=== PATIENT | female | born 2005 | race Caucasian/White ===

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

== ENCOUNTER 2024-05-29 21:30 | Emergency (ER) | payer MEDICAID, SELFPAY ==
--- OUTSIDE RECORDS SUMMARY | 2024-05-29 21:32 | XMS_ITS | Clinical Summary ---
Author Organization [facility] Address [address] [place] [id number] Care Team Providers Care Director Teen Post Name Role Phone Amanda Delgado MD Primary Care Provider [phone] Allergies No known active allergies Medications vit 28/iron fum/folic (multivitamin folic acid 1 mg)Indications: Early stage of (HC) Take 1 Tablet by mouth once daily. 90 Tablet 3 11/22/2023 Active aspirin (ECOTRIN) 81 mg enteric coated tabletIndicatio ns:Supervision of high risk in first trimester (HC) Take 1 Tablet (81 mg) by mouth once daily with a meal. Start aspirin at 12 weeks gestation. 90 Tablet 1 12/20/2023 Active ondansetron (ZOFRAN) 4 mg tablet Take 4 mg by mouth every 6 hours. 12/28/2023 Active meclizine (ANTIVERT) 25 mg tablet Take 25 mg by mouth 3 times daily if needed for Vertigo. 12/28/2023 Active Active Problems Problem Noted Date Diagnosed Date MPP, Supervision of high-risk 12/20/19 24 Overview (03/10/2024): Scott Pruitt : 2005 REFERRING PROVIDER: Amanda Delgado MD, [place], Primary provider approves scheduling of recommended ultrasounds/testing: Yes MPP ULTRASOUND/TESTING PATIENT Support person name: Medicare Biller: Yes - [place] ULTRASOUND TYPE: 03/12 level II REASON FOR VISIT: BMI 40 NEXT VISIT ALERTS: Final SLY by Early Ultrasound LMP Date: Patient's last menstrual period was 10/13/2023 (approximate). SLY: 07/19/24 Early US: Date: 12/05/23 GA: 6w3d SLY: 07/27/24 PrePregnancy Weight: 211lb Height: 5' BMI: 40 PLANS & FUTURE APPOINTMENTS: ULTRASOUND/GROWTH PLAN: - Through: - Growth: Next TESTING PLAN: - Testing: Through DELIVERY PLAN: - Scheduled delivery: - Preferred delivery location: PRIMARY DIAGNOSIS: 18 y.o. Estimated Date of Delivery: 07/27/24 MATERNAL PREVIOUS ULTRASOUNDS: (PCP) ECHO: SPECIALISTS/CONSULTS: Include: Specialty MD Clinic Name Phone# [place] and ADDED TO PATIENT CARE TEAM GENETICS: Declines/Not Done CARE COORDINATION: PERTINENT LABS: Labs reviewed? Yes Normal? No GC/CT not collected Blood type: O Positive Antibody screen: negative Non-[facility] labs need to be entered in [facility]? PERTINENT MEDS: bASA PROCEDURES: IF FGR <10% or EFW <2000 grams: Add FGRPCOM PLAN OF CARE: Original and updated POC Obesity affecting in first trimester 1 Hyperopic astigmatism of left eye 05/24/2017 Hypermetropia of right eye 05/24/2017 Anemia, unspecified 05/08/2007 Overweight(278.02) 05/08/2007 Estimated Date of Delivery Comme nts Yes 07/27/2024 Based on Ultraso und Resolved Problems Problem Noted Date Diagnosed Date Resolved Date Disruptive mood dysregulation disorder 06/14/2017 12/20/2023 Encounters Date Type Department Care Team Description 03/28/2024 Telephone [facility] [address] [place] [address] Amanda Delgado MD Questions (next steps) 03/12/2024 Telephone [facility] [address] [facility] [address] [place] [address] [facility], [place] from Last 3 Months Immunizations Immunization Administration Dates Next Due COVID-19 vaccine (AWR CorporationBio NTech 30mcg/0.3mL) 12YO+ BIVALENT MD YEMIV 02/09/2022 COVID-19 vaccine (Singularu-Bio NTech 30mcg/0.3mL) 12YO+ DESTINEY-SUCROSE PF, MDV 08/17/2021,02/01/2021 DTaP 03/23/2006,03/13/2006 SUyY-IvyY-PKE (Pediarix) 06/26/2005,04/17/2005,1 2004 HIB PRP-OMP (PedvaxHIB) 03/23/2006,03/13,04/17/2005,04/17,02/02/2005,02/02/2005 HPV 9 (Gardasil 9) 12/18/2017,04/11/2017 Hepatitis A (Peds) 11/19/2007,04/23/2007 Inactivated Polio Vaccine 04/11/2017 Influenza Virus, Unspecified 01/04/2006 Influenza, IIV3 (Age >=3 years) 01/04/2006 Influenza, IIV4 11/18/2019,12/18/2017,12/11/2016 MENINGOCOCCAL VACCINE 2 VIAL 2MO-55YO (MENVEO) 02/09/2022,12/11/2016 MMR 04/11/2017 MMRV 01/04/2006 Pneumococcal conj 7-Valent (Prevnar 7) 1 03/06/2005,06/26/2005,04/17/2005,02/02 Tdap 12/11/2016 Varicella Vaccine 01/24/2017 Family History Medical History Relation Name Comments Unknown Father Good Health Half-Sister Good Health Maternal Aunt Good Health Maternal Grandfather Depression Maternal Grandmother Diabetes Maternal Grandmother Hypertension Maternal Grandmother Anxiety disorder Mother Depression Mother Good Health Mother Unknown Paternal Grandfather Unknown Paternal Grandmother Unknown Paternal Uncle Good Health Sister Relation Name Status Comments Father Alive Half-Sister Alive Maternal Aunt Alive Maternal Grandfather Alive Maternal Grandmother Alive Mother Alive Paternal Grandfather Alive Paternal Grandmother Alive Paternal Uncle Alive Sister Alive Social History Tobacco Use Types Packs/Day Years Used Date Smoking Tobacco: Never Smokeless Tobacco: Never Tobacco Cessation:Counseling Given: Yes Comments:no exposure Alcohol Use Standard Drinks/Week Comments Not Currently 0 (1 standard drink = 0.6 oz pur e alcohol) Social drinker-occasional PHQ-2 Answer Date Recorded PHQ-2 TOTAL SCORE 2 02/09/2022 Social Connections Answer Date Recorded Do you often feel lonely or isolated from those around you? 0 11/22/2023 Financial Resource Strain Answer Date R ecorded Difficulty of Paying Living Expenses 1 11/22/2023 Difficulty of Paying Living Expenses 2 11/22/2023 Food Insecurity Answer Date Recorded Do you worry your food will run out before you are able to buy more? 1 11/22/2023 Transportation Needs Answer Date Record ed Lack of Transportation (Medical) Not on file 11/22/2023 Does lack of transportation keep you from work, meetings or getting things that you need? 1 11/22/2023 Housing Stability Answer Date Recorded What is your housing situation today? 1 11/22/2023 Utilities Answer Date Recorded Do you have trouble paying f or utilities (for example, heat, electricity, water, phone)? 2 11/22/2023 Estimated Date of Delivery Comme nts Yes 07/27/2024 Based on Ultraso und Sex and Gender Information Value Date Recorded Sex Assigned at Not on file Legal Sex Female 4:32 PM CDT Gender Identity Not on file Sexual Orientation Not on file Obstetrics History Para Term AB IAB SAB Ectopic Multiple Livin g Live Births 1 0 0 0 0 0 0 0 0 0 0 Date Outcome GA Total Labor Labor/2nd/3rd Weight Sex Type Anes PTL Yudy A1 A5 Name Clin Current Summary Episode Dates Number of Fetuses Estimated Date of Delivery 12/13/2023 - Present (05/29/2024) 07/27/2024 (set by Dona Mccain RN on 12/13/2023 based on Ultrasound on 12/05/2023) Dating Summary Based On SLY GA Diff Last Menstrual Period on 10/13/2023 (Approximate ) 07/19/2024 +1w1d Ultrasound on 12/05/2023 07/27/2024 Working GA:6w3d Vitals Pregravid Weight Height TWG (As of 05/29/2024) Pregrav id BMI 1.544 m (5' 0.79) Notes Progress Notes - OB Encounte r - 12/20/2023 - GA:8w4d 12/20/2023 - 8w4d - Me reggie Delgado MD Clinic Note: First OB Visit 12/20/2023 Scott Pruitt is a 18 y.o. with Estimated Date of Delivery: 07/27/24, here today for a first visit. She is 8w4d. 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 Plans to be there for 2 months. Will likely check in with an OB provider while down there. Still having some right lower quadrant pain . Went to ER. Ultrasounds have looked good IMPRESSION: Single living intrauterine measuring 7 weeks 3 days and a sonographic due date of 07/28/2024. Subchorionic hemorrhage measuring 1.6 x 0.8 x 2.4 cm. First ultrasound 12/04 at 6w3d with SLY 07/27/2024 (working dates) MENSTRUAL HISTORY Patient's last menstrual period was 10/13/2023 (approximate).: 07/19/2024 LMP was somewhere between October 17-. Not sure on dates. She has some irregularity to her periods at baseline. MEDICAL HISTORY Medical, surgical, family, and social history reviewed today and updated if necessary. Past Medical History: . Date ANEMIA 05/08/2007 Appendicitis 01/04/2017 Depression 2017 History of BCG vaccination In [place] OVERWEIGHT 05/08/2007 Past Surgical History: . Laterality Date LAPAROSCOPIC APPENDECTOMY 01/04/2017 Family History Problem Relation Age of Onset Depression Mother Anxiety disorder Mother Good Health Mother Unknown Father Good Health Sister Good Health Half-Sister Good Health Maternal Aunt Unknown Paternal Uncle Hypertension Maternal Grandmother Depression Maternal Grandmother Diabetes Maternal Grandmother Good Health Maternal Grandfather Unknown Paternal Grandmother Unknown Paternal Grandfather Social History Socioeconomic History Marital status: Single Tobacco Use Smoking status: Never Smokeless tobacco: Never Tobacco comments: no exposure Vaping Use Vaping status: Former Quit date: 12/04/2019 Substance and Sexual Activity Alcohol use: Not Currently Comment: Social drinker-occasional Drug use: Never Sexual activity: Yes Partners: Male Social History Narrative Merged History Encounter [employer], student 6 th grade, mother/Shelbi Current Outpatient Medications Medication Sig Dispense Refill aspirin (ECOTRIN) 81 mg enteric coated tablet Take 1 Tablet (81 mg) by mouth once daily with a meal. Start aspirin at 12 weeks gestation. 90 Tablet 1 vit 28/iron fum/folic (multivitamin folic acid 1 mg) Take 1 Tablet by mouth once daily. 90 Tablet 3 RISK FACTORS Seat Belt Use: 100% Alcohol/day: 0 Meds/Drugs/ETOH Since LMP: No Control Method: none High Risk Behavior: none INFECTION HISTORY Current Drug Use: none HIV Risk Evaluation: low risk Hepatitis B Risk Evaluation: low risk Hepatitis B Immunized: yes Personal History of Genital Herpes: no Partner History of Genital Herpes: no Rash/Viral Illness Since LMP: No History of STD: no history of STD's History of Chicken Pox? No Chicken pox immunization? yes Family history of - defects: no Chromosomal problems: no Stillbirths: no Desire Test for CYSTIC FIBROSIS or SMA? no Desire genetic testing otherwise? maybe REVIEW OF SYSTEMS: General: no fevers, chills, appetite changes, weight changes, fatigue Eyes: no blurry vision, double vision. no Ears/Nose/Throat: no hearing changes, pain. no nasal congestion, rhinorrhea, frequent epistaxis. no throat pain, difficulty swallowing. Last saw dentist no. Cardiovascular: no chest pain, chest pressure, syncope, orthostatic symptoms Respiratory: no cough, shortness of breath, dyspnea on exertion, orthopnea Gastrointestinal: + nausea, No vomiting, constipation, diarrhea, melena or bright red rectal bleeding Genitourinary - female: no hematuria, dysuria, incontinence, nocturia. no vaginal bleeding, cramping. Musculoskeletal: no back, arm or leg pain Skin: no rashes or lesions Neurologic: no numbness, weakness, tingling, headaches, falls Psychiatric: no depression, anxiety Endocrine: no polyuria, polydipsia, heat or cold intolerance Heme/Lymphatic: no easy bruising, easy bleeding Allergic/Immunologic: no frequent infections PHYSICAL EXAM BP 112/77 (Cuff Site: Left Arm, Position: Sitting, Cuff Size: Adult Large) Pulse 83 Wt 95.7 kg (211 lb) LMP 10/13/2023 (Approximate) SpO2 99% General Appearance: Alert, well-developed, well-nourished, with appropriate grooming and dress. No acute distress HEENT Exam: PERRL. MMM. TMs pearly bilaterally. Neck / Thyroid Exam: Supple, no masses, nodes or enlargement. Chest/Respiratory Exam: Normal chest wall and respirations. Clear to auscultation. Breast Exam: declines exam Cardiovascular Exam: Regular rate and rhythm. Normal S1, S2. No murmur, click, gallop, or rubs. Gastrointestinal Exam: Soft, non-tender, no masses or organomegaly. Pelvic Exam: no concerns. Lymphatic Exam: Non-palpable nodes in neck, clavicular regions. Musculoskeletal Exam: Back is straight and non-tender, full ROM of upper and lower extremities. Skin: no rash or abnormalities Neurologic Exam: Normal gait and speech, no tremor. Psychiatric Exam: Alert and oriented, appropriate affect. ASSESSMENT/PLAN: ICD-10-CM 1. Supervision of high risk in first trimester O09.91 TYPE & SCREEN POCT Urinalysis Dipstick Only URINE CULTURE URINALYSIS MICROSCOPIC GC / Chlamydia ([facility]) - Urine aspirin (ECOTRIN) 81 mg enteric coated tablet AMB CONSULT TO MATERNAL- MEDICINE 2. Obesity affecting in first trimester, unspecified obesity type O99.211 1. First OB: Satisfactory exam. Demonstrates appropriate and health seeking behaviors toward her . Verbalizes good understanding of care schedule and the importance of coming to each visit as scheduled. Has supportive family relationship. Reviewed health maintenance issues including diet, exercise, caffeine intake, handling of cat litter, toxic substances, daily vitamins, child classes, choosing a electrical engineer, and regular exams. - Reviewed ordered lab results - Reviewed [facility]nings and handouts 2. Given BMI >40, recommend level 2 ultrasound and consideration of baby aspirin to prevent preeclampsia. Will start at 12 weeks. 3. Interested in NIPT testing, brochure given. May try to complete in [place]. 4. RTC 4-8 weeks when back from [place]. She was encouraged to call the office with any questions or concerns. Amanda Delgado MD .................... 12/20/2023 1:04 PM [facility] [phone] CC: [facility] Progress Notes - OB Encounte r - 12/13/2023 - GA:7w4d 12/13/2023 - 7w4d - Adán , Dona, RN Student SUBJECTIVE: Scott Pruitt is a 18 y.o. female, , who presents for confirmation and ob education. Patient presents to the clinic alone. Had positive test at ER. This was Planned, Desired. Patient was not on contraception. 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 MENSTRUAL HISTORY: Patient's last menstrual period was 10/13/2023 (approximate).: Cycle Regularity: regular, every 28-30 days Past Medical History: . Date ANEMIA 05/08/2007 Appendicitis 01/04/2017 Depression 2017 History of BCG vaccination In [place] OVERWEIGHT 05/08/2007 OB History Para Term AB Living 1 0 0 0 0 0 SAB IAB Ectopic Multiple Live Births 0 0 0 0 0 # Outcome Date GA Lbr Fabrizio/2nd Weight Sex Type Anes PTL Lv 1 Current 5P'S SUBSTANCE ABUSE SCREEN FOR ALCOHOL, DRUGS AND TOBACCO: Did any of your parents have a problem with using alcohol or drugs? No Do any of your friends (peers) have problems with drug or alcohol use? No Does your partner have a problem with drug or alcohol use? No Before you knew you were , how often did you drink beer, wine, wine coolers or liquor or use any kind of drug? Rarely-alcohol In the past month, how often did you drink beer, wine, wine coolers or liquor or use any kind of drug? Not at all How much did you smoke, vape or use tobacco or nicotine in any form before you knew you were ? Don't Smoke, Vape or use Tobacco Genetic Screening Genetic Screening/Teratology Counseling- Includes patient, baby's father, or anyone in either family with: Patient's age 35 years or older as of estimated date of delivery: No Thalassemia (Thai, Turkmen, Mediterranean, or background): MCV less than 80: No Neural tube defect (Meningomyelocele, Spina bifida, or Anencephaly): No Congenital heart defect: No Down syndrome: Yes (Comment: Maternal aunt has down syndrome) Delmar-Sachs (Ashkenazi Orthodoxy, Cajun, Salvadorean [place]): No Danica disease (Ashkenazi Orthodoxy): No Familial dysautonomia (Ashkenazi Orthodoxy): No Sickle cell disease or trait (): No Hemophilia or other blood disorders: No Muscular dystrophy: No Cystic fibrosis: No Paras's chorea: No Intellectual disability and/or autism: No Other inherited genetic or chromosomal disorder: No Maternal metabolic disorder (eg. Type 1 diabetes, PKU): No Patient or baby's father had child with defects not listed above: No Recurrent loss, or a stillbirth: No Medications (including supplements, vitamins, herbs, or OTC drugs)/illicit/recreational drugs/alcohol since last menstrual period: No CURRENT MEDICATIONS: Current Outpatient Medications Medication Sig vit 28/iron fum/folic (multivitamin folic acid 1 mg) Take 1 Tablet by mouth once daily. No current facility-administered medications for this visit. Medications have been reviewed by me and are current to the best of my knowledge and ability. ALLERGIES: Patient has no known allergies. OBJECTIVE: Ht 1.544 m (5' 0.79) Wt 96.1 kg (211 lb 12.8 oz) LMP 10/13/2023 (Approximate) BMI 40.30 kg/m ,URINE (no units) Date Value 05/09/2022 Negative POC HCG URINE (no units) Date Value 11/22/2023 POSITIVE (A) ASSESSMENT/PLAN: No diagnosis found. EDUCATION/PATIENT INSTRUCTIONS - Advised patient to start/continue vitamin. - Discussed risk of using alcohol, tobacco, other drugs in . - Discussed healthy lifestyle in . - Provided copy of Beginnings book and book inserts, discussed [id number] medications, and follow up. - Encouraged patient to call clinic at [phone] with any vaginal bleeding, fluid leaking from vagina, severe abdominal pain, nausea with severe vomiting, fever higher than 100.4F, painful urination, headache not relieved by Tylenol, or other concerns - labs completed with today's visit. - Patient informed to schedule 1st trimester dating ultrasound between 7-10 weeks. - Initial OB appointment with FP/OB scheduled. PHQ-9, and COVID-19 vaccine discussion to be completed at this visit. Future Appointments Date Time Provider Department Center 12/20/2023 12:45 PM Amanda Delgado MD [facility] Dona Mccain RN .................... 12/13/2023 10:41 AM Last Filed Vital Signs Vital Sign Reading Time Taken Comments Blood Pressure 112/77 12/20/2023 12:54 PM CDT Pulse 83 12/20/2023 12:54 PM CDT Temperature 36.9 C (98.5 F) 12/19/2019 6:04 PM CDT Respiratory Rate 16 12/19/2019 6:04 PM CDT Oxygen Saturation 99% 12/20/2023 12:54 PM CDT Inhaled Oxygen Concentration - - Weight 95.7 kg (211 lb) 12/20/2023 12:54 PM CDT Height 154.4 cm (5' 0.79) 12/13/2023 10:16 AM C DT Head Circumference 48.9 cm 10/25/2006 1:30 PM CDT Head Circumference Percentile 91.92% 10/25/2006 1:30 PM CDT Growth Chart: WHO (Girls, 0- 2 years) Body Mass Index - - Plan of Treatment Upcoming Encounters Date Type Department Care Team (Late st Contact Info) Description 06/04/2024 9:10 AM CDT OB Encounter [facility] [address] [place] [address] Amanda Delgado MD [address] [place] [address] Health Maintenance Due Date Last Done Comments Well Child Check for age 3-20 02/09/2023 02/09/2022, 11/18/2019, 12/18/2017, Additional history exists Depression screening for age 12+ 02/13/2023 02/13/2022, 02/09/2022, 11/18/2019, Additional history exists Chlamydia for age 16-24 05/10/2023 05/10/19 23, 02/09/2022, 12/19/2019 COVID-19 vaccine series ( season) 2023 02/09/2022, 08/17/2021, 02/01/2021 Influenza Vaccine (#1) 2023 0, 12/18/2017, 12/11/2016, Additional history exists BMI (ht and wt on same day) for age 18+ 2024 12/13/2023, 11/22/2023 Tetanus booster 12/11/2026 12/11/2016 Pneumococcal series for age 6-49 Aged Out 01/04/2006, 06/26/2005, 04/17/2005, Additional history exists No longer eligible based on patient's age to complete this topic Tdap Completed 12/11/2016 HPV series for age 9-26 Completed 12/18/2017, 04/11 Meningococcal series for age 11-21 Completed 02/09/2022, 12/11/2016 HIV for age 15-65 Completed 12/13/2023 Hepatitis C screening for age 18-79 Completed 12/13/2023 RSV vaccine for adults or (No Doses Required) Completed Procedures Procedure Name Priority Date/Time Associated Diagnosis Comments HIV 1/2 ANTIGEN/ANTIBODY FOURTH GENERATION W/RFL ([facility] [employer]) Routine 12/13/2023 12:00 PM CDT Encounter for supervision of normal first in first trimester (HC) ANTI HCV Routine 12/13/2023 12:00 PM CDT Encounter for supervision of normal first in first trimester (HC) GC CHLAMYDIA TRACH PROBE Routine 05/09/2022 11:30 AM APARTMENT LEASING AGENT Vaginal pain from Last 3 Months or Most Recently Relevant to Health Maintenance Results * HIV 1/2 ANTIGEN/ANTIBODY FOURTH GENERATION W/RFL ([facility]) (12/13/2023 12:00 PM CDT) HIV AG/AB, 4TH GEN NON-REACT JANE NON-REACT JANE [facility] Comment: HIV-1 antigen and HIV-1/HIV-2 antibodies were not detected. There is no laboratory evidence of HIV infection. PLEASE NOTE: This information has been disclosed to you from records whose confidentiality may be protected by state law. If your state requires such protection, then the state law prohibits you from making any further disclosure of the information without the specific written consent of the person to whom it pertains, or as otherwise permitted by law. A general authorization for the release of medical or other information is NOT sufficient for this purpose. For additional information please refer to http://[facility].3CI/faq/ZVG588 (This link is being provided for informational/ educational purposes only.) The performance of this assay has not been clinically validated in patients less than 2 years old. Blood BLOOD SPECIMEN / Unknown 12/13/2023 12:00 PM CDT 12/13/2023 12:01 PM CDT Narrative [facility] - 12/14/2023 5:58 AM CDT PATIENT UNABLE TO VOID; ADVISED TO RETURN FOR COLLECTION. Amanda Delgado MD SEND OUTS Final Resul t [facility] [address] [place] [address], [facility] [address] [place] [address] * ANTI HCV (12/13/2023 12:00 PM CDT) HEPATITIS C ANTIBODY NON-REACTI VE NON-REACT JANE [facility] Comment: HCV antibody was non-reactive. There is no laboratory evidence of HCV infection. In most cases, no further action is required. However, if recent HCV exposure is suspected, a test for HCV RNA (test code 68446) is suggested. For additional information please refer to http://[facility].3CI/faq/CQI03t2 (This link is being provided for informational/ educational purposes only.) Blood BLOOD SPECIMEN / Unknown 12/13/2023 12:00 PM CDT 12/13/2023 12:01 PM CDT Narrative [facility] - 12/14/2023 5:58 AM CDT PATIENT UNABLE TO VOID; ADVISED TO RETURN FOR COLLECTION. us Amanda Delgado MD SEND OUTS Final Resul t [facility] [address] [place] [address], [facility] [address] [place] [address] * GC & CHLAMYDIA DNA PCR [[id number]] (05/09/2022 11:30 AM APARTMENT LEASING AGENT) CHLAMYDIA PROBE Negative 2:26 AM APARTMENT LEASING AGENT [facility] N GONORRHOEAE PROBE Negative 05/10/2022 2:26 AM APARTMENT LEASING AGENT [facility] Other URINE SPECIMEN / Unknown Non-Blood / Unknown 05/09/2022 11:30 AM APARTMENT LEASING AGENT 05/09/2022 11:53 AM APARTMENT LEASING AGENT us Aretha Babb DO MICROBIOLOGY Final Result [facility] 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
[2024-05-29 21:38] VITALS: BP 119/78; PULSE 88; RESP 18; TEMP 36.5; O2SAT 98; BMI 35.2
--- NOTE | 2024-05-29 21:56 | ED_ITS ---
HPI - Headache General Time Seen by Provider: 21:56 Date Seen: 05/29/24 Chief Complaint: Headache/Migraine Stated Complaint: Headache blurred vision, travel from [place] Time Seen by Provider: 05/29/24 21:56 Source: patient, family, RN notes reviewed and old records reviewed Mode of arrival: ambulatory Limitations: no limitations History of Present Illness HPI Narrative: Scott is a very pleasant 18-year-old at approximately 32 weeks per patient report-no OB establishment in the [place]who comes to the emergency room at the urging of her physician from [place] for evaluation of a headache and blood pressure check as well as an ultrasound. Patient noted to have been in [place] for the last 5 months with family members. This morning she got up at 0300 hours in order to take a 5 hour bus trip to the airport in [facility]. She notes that when she got up she had a headache and states it was just everywhere and attributed that to getting up and feeling tired. She notes that when she 1st got up she also had some stars in her vision but those have since resolved. She had a mild headache continue on the flight but now that she is back in [place] she is feeling much better and she does not have a headache. She does endorse some increased lower extremity swelling but states that really has not been a problem for her. She notes that the baby does not seem to be moving as much today when normally the baby is very active. No vaginal bleeding no abdominal pain at this time. Does note that she has no pain with urination but sometime she can not hold her P. She notes that she had a cough 3 weeks ago and has continued but it is much better. She denies any shortness of breath or chest pain. Her sister is here at this time. Very loving and supportive. Blood pressure is 120/77. I do query the patient if this is what is normal for her and she felt that that was what her numbers were when she was in [place]. Again at this time denies visual changes, headache, abdominal pain, fever or chills. Related Data Home Medications ?Medication ?Instructions ?Recorded ?Confirmed vitamin with calcium 1 tab PO DAILY 12/05/23 12/28/23 no.72-iron 27 mg-folic acid 1 mg tablet ( Vitamins Plus Low Iron) Previous Rx's ?Medication ?Instructions ?Recorded meclizine 25 mg tablet 25 mg PO QID #20 tabs 12/28/23 ondansetron HCl 4 mg tablet 4 mg PO Q6H #20 tabs 12/28/23 Allergies Allergy/AdvReac Type Severity Reaction Status Date / Time No Known Drug Allergies Allergy Verified 05/29/24 21:37 Review of Systems Status of ROS: Reports: 10 or more systems reviewed and unremarkable except as noted in History and below Const: Denies: fever, chills or fatigue ENMT: Denies: throat pain or nasal congestion Cardio: Reports: swelling of feet/ankles; Denies: chest pain or shortness of breath with exertion Resp: Reports: cough; Denies: shortness of breath GI: Denies: abdominal pain, nausea, vomiting or diarrhea Musculo: Denies: back pain Integ/Breast: Denies: rash Neuro: Reports: headache (Resolved); Denies: numbness in extremities or weakness in extremities Endo: Denies: fatigue PFSH PFSH Social History Smoking Status: Never smoker Do you use any of these nicotine containing products: None Second hand tobacco smoke exposure: No How often do you have a drink containing alcohol: never How often do you have six or more drinks on one occasion: Never AUDIT-C Alcohol total score: 0 Non-prescribed substance use: denies use service: No Exam Narrative: Exam Narrative: Alert and oriented. Very pleasant young woman in no acute distress. Eyes are clear. Face symmetrical. Mentating normally. Head is atraumatic. Heart with regular rate and rhythm and lungs are clear bilaterally. Abdomen soft nontender gravid. Lower extremities with scant peripheral edema. No erythema and no calf tenderness. Moving all extremities equally. Const: Vital Signs, click to edit/add: Vital Signs - 24 hr 05/29/24 21:38 05/29/24 23:06 Temperature 97.7 F Pulse Rate [Right Pulse Oximeter] 88 68 Respiratory Rate 18 16 Blood Pressure [Ri ght Upper Arm] 119/78 112/73 Pulse Oximetry 98 98 Oxygen Delivery Me thod Room Air Room Air Documenting provider has reviewed patient's vital signs: yes Course Course ED Course: At this time differential diagnosis includes fatigue, migraine, routine headache, preeclampsia. Given minimal obstetrical care here will do workup for preeclampsia to include CBC, comprehensive panel, urinalysis. I did have the pleasure of speaking with Ob packaging sales consultant Dr. Duggan. She does advise a biophysical profile ultrasound and growth assessment. Reevaluation(s) Reevaluation #1: Biophysical profile 10/10 and appropriate growth. Laboratory values reassuring with no evidence of proteinuria, elevated LFTs. Recheck of blood pressure is 112/73. Patient has no headache or abdominal pain at this time. No medications were given. Vital Signs Vital signs: Initial Vital Signs Temperature 97.7 F 05/29/24 21:38 Temperature Source Temporal Artery Scan 05/29/24 21:38 Pulse Rate 88 05/29/24 21:38 Respiratory Rate 18 05/29/24 21:38 Blood Pressure 119/78 05/29/24 21:38 Blood Pressure Mean 91 05/29/24 21:38 Blood Pressure Position Sitting 05/29/24 21:38 Pulse Oximetry 98 05/29/24 21:38 Oxygen Delivery Method Room Air 05/29/24 21:38 Vital Signs Temperature 97.7 F 05/29/24 21:38 Pulse Rate 88 05/29/24 21:38 Respiratory Rate 18 05/29/24 21:38 Blood Pressure 119/78 05/29/24 21:38 Pulse Oximetry 98 05/29/24 21:38 Oxygen Delivery Method Room Air 05/29/24 21:38 Temperature 97.7 F 05/29/24 21:38 Pulse Rate 68 05/29/24 23:06 Respiratory Rate 16 05/29/24 23:06 Blood Pressure 112/73 05/29/24 23:06 Pulse Oximetry 98 05/29/24 23:06 Oxygen Delivery Method Room Air 05/29/24 23:06 MDM - Headache MDM Narrative Medical decision making narrative: 1. Headache-resolved. Patient notes that she had to get up at 0300 hours in order to do a 5 hour bus trip to the airport. She notes that she is missing her mother which is there. No evidence of preeclampsia and headache has resolved even prior to her arrival. No evidence of protein urea, hypertension. 2. Disposition-home at this time. Follow-up with primary care at the [facility]. Feel free to establish with our OBGYN here if needed. Return to the ER as needed for worsening symptoms. Medical Records Attestation: I reviewed the patient's medical records. Lab Data Attestation: I reviewed the patient's lab results. Labs: Lab Results 05/29/24 05/29/24 05/29/24 Range/Units 21:54 22:24 22:35 WBC 9.56 (4.50-11.00) K/uL RBC 4.28 (4.00-5.20) m/uL Hgb 12.6 (12.0-16.0) gm/dL Hct 37.5 (33.0-51.0) % MCV 88 (80-100) fL MCH 29 (26-34) pg MCHC 34 (32-36) gm/dL RDW Coeff of Guera 13.5 (11.5-15.5) % Plt Count 302 (140-440) K/uL Neut % (Auto) 71.6 (42.0-72.0) % Lymph % (Auto) 20.2 (20-44) % [place] % (Auto) 5.1 (0.0-11.0) % Eos % (Auto) 0.9 (0.0-7.0) % Baso % (Auto) 0.2 (0.0-3.0) % Neut # (Auto) 6.84 (1.7-7.0) K/uL Lymph # (Auto) 1.93 (0.90-2.90) K/uL [place] # (Auto) 0.50 (0.00-0.90) K/UL Eos # (Auto) 0.09 (0.00-0.50) K/uL Baso # (Auto) 0.02 (0.00-0.30) K/uL Abs Immat Gran (auto) 0.19 (0.00-0.30) K/uL Imm/Tot Granulo (auto) 2.0 % APTT 31 (23-33) Seconds Fibrinogen 718 H (200-450) mg/dL Sodium 135 (135-149) mmol/L Potassium 3.5 L (3.6-5.1) mmol/L Chloride 106 (96-114) mmol/L Carbon Dioxide 21 (20-32) mmol/L Anion Gap 8 (7-15) mEq/L BUN 7 (5-24) mg/dL Creatinine 0.4 L (0.6-1.2) mg/dL Estimated Creat Clear 162.49 Estimated GFR 146 ml/min Glucose 95 (60-115) mg/dL Uric Acid 2.6 (2.2-8.4) mg/dL Calcium 9.4 (8.7-10.8) mg/dL Total Bilirubin 0.3 (0.1-1.5) mg/dL AST 29 (12-35) U/L ALT 18 (4-35) U/L Alkaline Phosphatase 110 (40-150) U/L Total Protein 7.1 (6.0-8.3) g/dL Albumin 3.7 (3.3-5.0) g/dL Urine Color Yellow (Yellow) Urine Appearance Clear (Clear) Urine pH 6.0 (5.0-8.5) Ur Specific [place] 1.020 (1.000-1.030) Urine Protein Negative (Negative) Urine Glucose (UA) Negative (Negative) Urine Ketones Trace A (Negative) Urine Blood Negative (Negative) Urine Nitrite Negative (Negative) Urine Bilirubin Negative (Negative) Urine Urobilinogen 0.2 (0.2-1.0) Ur Leukocyte Esterase Trace A (Negative) Urine RBC 0-2 (0-2) Urine WBC 0-2 (0-5) Ur Squamous Epith Cells Few (None-Few) Amorphous Sediment Few A (None) Urine Bacteria Few A (None) Urine Creatinine 124.2 mg/dL Protein/Creatinin Ratio 0.08 (0-0.19) Urine Total Protein 10 mg/dL SARS-CoV-2 (PCR) Negative SARS-CoV-2 (Negative) Influenza Type A (PCR) Negative PCR FLU A (Negative) Influenza Type B (PCR) Negative PCR FLU B (Negative) RSV (PCR) Negative PCR RSV (Negative) Imaging Data OB ultrasound: Attestation: I have reviewed the pertinent imaging results. Discharge Plan Discharge Clinical Impression: Headache Patient Disposition: Home, Self-Care Condition: Improved Additional Instructions: Follow-up with your primary care provider at the [facility]. Rest and push fluids. Return for headache, visual changes, abdominal pain and as needed. Prescriptions: No Action Vitamin Plus Low Iron 27 mg iron- 1 mg tablet 1 tab PO DAILY ondansetron HCl 4 mg tablet 4 mg PO Q6H Qty: 20 0RF meclizine 25 mg tablet 25 mg PO QID Qty: 20 0RF Follow Up/Referrals: Provider,Not a Local [Primary Care Provider] - Stand Alone Forms: MyHealth Info Instructions
--- NOTE | 2024-05-29 22:16 | CRLHL7_ITS ---
For Patients: As a result of the Cures Act, medical imaging exams and procedure reports are released immediately into your electronic medical record. You may view this report before your referring provider. If you have questions, please contact your health care provider. INDICATION: Decreased movement, headache. COMPARISON: OB ultrasound 12/05/2023. TECHNIQUE: Ultrasound OB pelvis transabdominal. FINDINGS: Sonographic imaging demonstrates a single living intrauterine gestation. The fetus has a regular cardiac rate of 121 beats per minute. The fetus has a cephalic orientation. The placenta lies anteriorly without evidence of placenta previa. Amniotic fluid volume appears normal with deepest pocket measuring 7.4 cm. The composite ultrasound gestational age is calculated at 32 weeks 1 day with an estimated sonographic due date of 07/23/2024. The estimated weight is 1816 grams which lies at the 42nd percentile. The following biometric measurements were obtained: Biparietal diameter: 8.42 cm (33 weeks 6 days) (94th percentile) Head circumference: 29.15 cm (32 weeks 1 day) (27th percentile) Abdominal circumference: 27.96 cm (32 weeks 0 days) (61st percentile) Femur length: 5.81 cm (30 weeks 3 days) (11th percentile) The HC/AC ratio measures: 1.04 (range 0.96-1.14) BIOPHYSICAL PROFILE: breathing movements: 2/2 Gross body movements: 2/2 tone: 2/2 Amniotic fluid volume: 2/2 Total: 8/8 IMPRESSION: 1. Single living intrauterine gestation in cephalic position with heart rate 121 beats per minute. 2. Ultrasound gestational age 32 weeks 1 day with sonographic due date 07/23/2024. This is concordant with the clinical gestational age of 31 weeks 4 days. 3. Estimated weight is 42nd percentile. 4. Normal biophysical profile score 8 out of 8. Dictated by Adali Yung MD @ 05/30/2024 1:46:32 AM (Electronically Signed)
--- OUTSIDE RECORDS SUMMARY | 2024-05-29 22:23 | XMS_ITS | Clinical Summary ---
Author Organization [facility] Address [address] [place] [id number] Care Team Providers Care Process Improvement Specialist Name Role Phone Amanda Delgado MD Primary Care Provider [phone] Allergies No known active allergies Medications vit [...] : 2004 REFERRING PROVIDER: Amanda Delgado MD, [place], Primary provider approves scheduling of recommended ultrasounds/testing: Yes MPP ULTRASOUND/TESTING PATIENT Support person name: Public Relations Manager: Yes - Turkish ULTRASOUND TYPE: 03/12 level II REASON FOR [...] Non-[facility] labs need to be entered in [employer]? PERTINENT MEDS: bASA PROCEDURES: IF FGR <10% [...] Type Department Care Team Description 03/28/[address] [facility] [address] [place] [address] Amanda Delgado MD Questions (next steps) 03/12/2024 Telephone [facility] [address] [facility] [address] [place] [address] [facility], [place] from Last 3 Months Immunizations Immunization Administration Dates Next Due COVID-19 vaccine (The Eye TribeBio NTech 30mcg/0.3mL) 12YO+ BIVALENT MD YEMIV 02/09/2022 COVID-19 vaccine (KidoZen-Bio NTech 30mcg/0.3mL) 12YO+ DESTINEY-SUCROSE PF, MDV 08/17/2021,02/01/2021 DTaP 03/23/2006,03/13/2006 [id number] (Pediarix) 06/26/2005,04/17/2005,1 2004 HIB PRP-OMP (PedvaxHIB) 03/23/2006,03/13,04/17/2005,04/17,02/02/2005,02/02/2005 [...] Marital Status: single 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 Plans to be [...] Depression 2017 History of BCG vaccination In [place] OVERWEIGHT 05/08/2007 Past Surgical History: . Laterality [...] substances, daily vitamins, child classes, choosing a unit nurse, and regular exams. - Reviewed ordered lab results - Reviewed New Beginnings and handouts 2. Given BMI >40, recommend level 2 ultrasound and consideration of baby aspirin to prevent preeclampsia. Will start at 12 weeks. 3. Interested in NIPT testing, brochure given. May try to complete in [place]. 4. RTC 4-8 weeks when back from [place]. She was encouraged to call the office with any questions or concerns. Amanda Delgado MD .................... 12/20/2023 1:04 PM [facility] [phone] CC: [facility] Progress Notes - OB Encounte r [...] Depression 2017 History of BCG vaccination In [place] OVERWEIGHT 05/08/2007 OB History Para Term AB [...] of estimated date of delivery: No Thalassemia (Persian, Albanian, Mediterranean, or background): MCV less than 80: No Neural tube defect (Meningomyelocele, Spina bifida, or Anencephaly): No Congenital heart defect: No Down syndrome: Yes (Comment: Maternal aunt has down syndrome) Delmar-Sachs (Ashkenazi Yazidism, Cajun, Bahamian Greer): No Danica disease (Ashkenazi Yazidism): No Familial dysautonomia (Ashkenazi Yazidism): No Sickle cell disease or trait (): [...] of Beginnings book and book inserts, discussed [id number] medications, and follow up. - Encouraged patient to call clinic at [phone] with any vaginal bleeding, fluid leaking from [...] Center 12/20/2023 12:45 PM Amanda Delgado MD [facility] Dona Mccain RN .................... 12/13/2023 10:41 AM [...] Description 06/04/2024 9:10 AM CDT OB Encounter [facility] [address] [place] [address] Amanda Delgado MD [address] [place] [address] Health Maintenance Due Date Last Done Comments [...] Comments HIV 1/2 ANTIGEN/ANTIBODY FOURTH GENERATION W/RFL (One4All) Routine 12/13/2023 12:00 PM CDT Encounter for supervision of normal first in first trimester (HC) ANTI HCV Routine 12/13/2023 12:00 PM CDT Encounter for supervision of normal first in first trimester (HC) GC CHLAMYDIA TRACH PROBE Routine 05/09/2022 11:30 AM FINAL INSPECTOR [employer]ORCY[employer] Vaginal pain from Last 3 Months or Most Recently Relevant to Health Maintenance Results * HIV 1/2 ANTIGEN/ANTIBODY FOURTH GENERATION W/RFL ([facility]) (12/13/2023 12:00 PM CDT) HIV AG/AB, 4TH GEN NON-REACT JANE NON-REACT JANE [facility] Comment: HIV-1 antigen and HIV-1/HIV-2 antibodies were [...] purpose. For additional information please refer to http://CommProve.YuMingle/faq/ENC707 (This link is being provided for informational/ [...] Delgado MD SEND OUTS Final Resul t [employer] [facility] [address] [place] [address], [facility] [facility] [address] [place] [address] * ANTI HCV (12/13/2023 12:00 PM CDT) HEPATITIS C ANTIBODY NON-REACTI VE NON-REACT JANE [employer] [facility] Comment: HCV antibody was non-reactive. There is no laboratory evidence of HCV infection. In most cases, no further action is required. However, if recent HCV exposure is suspected, a test for HCV RNA (test code 49928) is suggested. For additional information please refer to http://CommProve.YuMingle/faq/MRU46x4 (This link is being provided for informational/ educational purposes only.) Blood BLOOD SPECIMEN / Unknown 12/13/2023 12:00 PM CDT 12/13/2023 12:01 PM CDT Narrative [facility] - 12/14/2023 5:58 AM CDT PATIENT UNABLE TO VOID; ADVISED TO RETURN FOR COLLECTION. us Amanda Delgado MD SEND OUTS Final Resul t [facility] [address] [place] [address], [facility] [address] [place] [address] * GC & CHLAMYDIA DNA PCR [[id number]] (05/09/2022 11:30 AM FINAL INSPECTOR [employer]ORCYLES) CHLAMYDIA PROBE Negative 2:26 AM FINAL INSPECTOR [employer]ORCY[employer] [facility] N GONORRHOEAE PROBE Negative 05/10/2022 2:26 AM FINAL INSPECTOR MOTORCYLES [facility] Other URINE SPECIMEN / Unknown Non-Blood / Unknown 05/09/2022 11:30 AM FINAL INSPECTOR [employer]OR[employer] 05/09/2022 11:53 AM FINAL INSPECTOR [employer]ORCY[employer] us Aretha Babb DO MICROBIOLOGY Final Result [facility] [address] [place] [address], from Last 3 Months or Most Recently Relevant to Health Maintenance Insurance [facility] [employer] INS Advance Directives Documents on File Type Date Recorded Patient Mopper Expl anation Power of Artist Woodblock 06/04/2017 3:33 PM POWER OF BIRTH ATTENDANT, SUKUMAR FROST, 08/30/16 Care Teams Process Improvement Specialist Relationship Specialty Start Date End Date Amanda Delgado MD [address] [facility] [place] [address] PCP - General Family Practice 12/13/23
[2024-05-29 22:46] LABS: Appearance Urine Clear (Clear); Bilirubin Urine Negative (Negative); Blood Urine Negative (Negative); Color Urine Yellow (Yellow); Glucose Urine Negative (Negative); Ketones Urine Trace (Negative); Leukocyte Esterase Urine Trace (Negative); Nitrite Urine Negative (Negative); Protein Urine Negative (Negative); Urobilinogen Urine 0.2 (0.2-1.0)
[2024-05-29 22:52] LABS: Amorphous Sediment Urine Few; Bacteria Urine Few; RBC Urine 0-2 (0-2); Squamous Epithelial Cell Urine Few (None-Few); WBC Urine 0-2 (0-5)
[2024-05-29 22:52] LABS: Fibrinogen* 718 mg/dL (200-450); Partial Thromboplastin Time* 31 Seconds (23-33)
[2024-05-29 22:58] LABS: Basophils Absolute Auto 0.02 K/uL (0.00-0.30); Basophils Percent Auto 0.2 % (0.0-3.0); Eosinophils Absolute Auto 0.09 K/uL (0.00-0.50); Eosinophils Percent Auto 0.9 % (0.0-7.0); Hematocrit 37.5 % (33.0-51.0); Hemoglobin* 12.6 gm/dL (12.0-16.0); Immature Granulocytes Abs Auto 0.19 K/uL (0.00-0.30); Lymphocytes Absolute Auto 1.93 K/uL (0.90-2.90); Lymphocytes Percent Auto 20.2 % (20-44); Mean Corpuscular HGB Conc 34 gm/dL (32-36); Mean Corpuscular Hemoglobin 29 pg (26-34); Mean Corpuscular Volume 88 fL (80-100); Monocytes Percent Auto 5.1 % (0.0-11.0); Neutrophils Absolute Auto 6.84 K/uL (1.7-7.0); Neutrophils Percent Auto 71.6 % (42.0-72.0); Platelet Count* 302 K/uL (140-440); RDW Coefficient of Variation % 13.5 % (11.5-15.5); Red Blood Count 4.28 m/uL (4.00-5.20); White Blood Count* 9.56 K/uL (4.50-11.00)
[2024-05-29 23:01] LABS: Slide Review Reflex No
[2024-05-29 23:02] LABS: Albumin* 3.7 g/dL (3.3-5.0); Chloride* 106 mmol/L (96-114); Potassium* 3.5 mmol/L (3.6-5.1); Sodium* 135 mmol/L (135-149)
[2024-05-29 23:03] LABS: Total Protein Urine 10 mg/dL
[2024-05-29 23:04] LABS: Creatinine Urine 124.2 mg/dL; Protein Creatinine Ratio Urine 0.08 (0-0.19)
[2024-05-29 23:04] LABS: Anion Gap 8 mEq/L (7-15); Blood Urea Nitrogen* 7 mg/dL (5-24); Carbon Dioxide* 21 mmol/L (20-32); Creatinine* 0.4 mg/dL (0.6-1.2); Est. Creatinine Clearance* 162.49; Estimated Glomerular Filt Rate 146 ml/min
[2024-05-29 23:05] LABS: Alanine Aminotransferase* 18 U/L (4-35); Alkaline Phosphatase* 110 U/L (40-150); Aspartate Amino Transferase* 29 U/L (12-35); Bilirubin Total* 0.3 mg/dL (0.1-1.5); Calcium* 9.4 mg/dL (8.7-10.8); Glucose* 95 mg/dL (60-115); Total Protein* 7.1 g/dL (6.0-8.3); Uric Acid* 2.6 mg/dL (2.2-8.4)
[2024-05-29 23:06] VITALS: BP 112/73; PULSE 68; RESP 16; O2SAT 98
[2024-05-29 23:15] LABS: PCR FLU A Negative PCR FLU A (Negative); PCR FLU B Negative PCR FLU B (Negative); PCR RSV Negative PCR RSV (Negative); SARS PCR* Negative SARS-CoV-2 (Negative)
== END 2024-05-29 23:35 | disposition home or self-care (01) ==
PROVIDERS: Emergency Provider Family Medicine
DX: R51.9 Headache, unspecified (principal)
CPT/HCPCS: 36415; 76816; 76819; 80053; 81001; 82570; 84156; 84550; 85025; 85384; 85730; 87086; 87631; 99284

== ENCOUNTER 2024-06-12 21:50 | Emergency (ER) | payer MEDICAID, SELFPAY ==
--- OUTSIDE RECORDS SUMMARY | 2024-06-12 21:52 | XMS_ITS | Clinical Summary ---
Author Organization [facility] Address [address] [place] [id number] Care Team Providers Care Rail Bonder Name Role Phone Amanda Delgado MD Primary Care Provider [phone] Allergies No known active allergies Medications aspirin (ECOTRIN) 81 mg enteric coated tabletIndicatio ns:Supervision of high risk in first trimester (HC) Take 1 Tablet (81 mg) by mouth once daily with a meal. Start aspirin at 12 weeks gestation. 90 Tablet 1 4 Active ondansetron (ZOFRAN) 4 mg tablet Take 4 mg by mouth every 6 hours. 4 Active meclizine (ANTIVERT) 25 mg tablet Take 25 mg by mouth 3 times daily if needed for Vertigo. 4 Active vit 28/iron fum/folic (multivitamin folic acid 1 mg)Indications: Early stage of (HC) Take 1 Tablet by mouth once daily. 90 Tablet 3 5 Active Breast Pump PurchaseIndicat ions:Supervisio n of high risk in third trimester (HC),Obesity affecting in first trimester, unspecified obesity type (HC) Electric breast pump for home use. Gestational age at delivery: to be determined. Reason for need: separation from . Length of need: 99 months (lifetime use) 1 Each 5 Active vit 28/iron fum/folic (multivitamin folic acid 1 mg)Indications: Early stage of (HC) Take 1 Tablet by mouth once daily. 90 Tablet 3 4 025 Discontin ued(Reord er (E-cancel not sent)) Breast Pump PurchaseIndicat ions:Supervisio n of high risk in third trimester (HC),Obesity affecting in first trimester, unspecified obesity type (HC) Electric breast pump for home use. Gestational age at delivery: to be determined. Reason for need: separation from infant. Length of need: 99 months (lifetime use) 1 Each 5 025 Discontin ued(*Erro r/rockboard lather error) Active Problems Problem Noted Date Diagnosed Date [facility], Supervision of high-risk 12/20/19 24 Overview (06/12/2024): Additional [facility] SRO - 06/12/2024 - Completed [x] Patient name: Scott Pruitt : 2005 Age: 18 y.o. Date of SRO: 06/12/2024 Estimated Date of Delivery: 07/27/24 Gest Age: 33w4d G/P: Current BMI: 41 Reason for referral: Obesity, was in [place] for much of , never had level 2 US/ echo. REFERRING PROVIDER/CLINIC LOCATION/FAX #: Rail Bonder Role Contact Info Address Amanda Delgado MD Family Practice [address] [facility] [address] Primary MD approves scheduling of recommended ultrasounds/testing: Yes Please schedule the following: [x] Gloria [] Multiples: [] Consult [x] Ultrasound: - Level 2 (including echo) - 75 minutes and - BPP w/NST - once [] Genetic Counseling [] Before [] After []15 [] 30 []45 []NT []CVS []Amnio [] BMI > 40 [] Territory Sales Representative - Language [] [place] Insurance: Location Specialty Days Any [facility] Clinic [x] In-person [] Can be virtual N/A Comments: RN: ESTELA SHORT RN Parts Expediter: CROW: /Provider: Date:06/12/2024 Urgency: 4-10 days (delete BPP/NST if you can get her L2 before 34w) []Can be sooner [] Can be split Scott Pruitt : 2005 REFERRING PROVIDER: Amanda Delgado MD, [place], Primary provider approves scheduling of recommended ultrasounds/testing: Yes [facility] ULTRASOUND/TESTING PATIENT Support person name: Territory Sales Representative: Yes - [facility] ULTRASOUND TYPE: L2 and BPP/NST REASON FOR VISIT: BMI 41, obesity, was in [place] for much of , never had level 2 US/ echo. NEXT VISIT ALERTS: Final SLY by Early Ultrasound LMP Date: Patient's last menstrual period was 10/13/2023 (approximate). SLY: 07/19/24 Early US: Date: 12/05/23 GA: 6w3d SLY: 07/27/24 PrePregnancy Weight: 211lb Height: 5' BMI: 40 PLANS & FUTURE APPOINTMENTS: ULTRASOUND/GROWTH PLAN: - Growth: Next TESTING PLAN: - Testing: Through DELIVERY PLAN: - Scheduled delivery: - Preferred delivery location: PRIMARY DIAGNOSIS: 18 y.o. Estimated Date of Delivery: 07/27/24 MATERNAL: BMI 41 Was in [place] for much of , never had level 2 US/ echo. PREVIOUS ULTRASOUNDS: 05/29/24 (US at Primary@32w1d for d/0 decreased FM) EFW 42%, BPP 8/8, normal fluid 05/26/24 (US done in [place]) EFW 1813 gm, normal fluid (report in [facility]) 04/14/24 (US done in [place]) EFW 720 gm (report in [facility]) (PCP)12/05/23 GA: 6w3d SLY: 07/27/24 ECHO: SPECIALISTS/CONSULTS: Include: Specialty MD Clinic Name Phone# [place] and ADDED TO PATIENT CARE TEAM GENETICS: Declines/Not Done CARE COORDINATION: PERTINENT LABS: Passed 2 hr gtt in [place] Blood type: O Positive Antibody screen: negative Non-[facility] labs need to be entered in EPIC? PERTINENT MEDS: bASA PROCEDURES: PLAN OF CARE: Original and updated POC Obesity affecting in first trimester 1 Hyperopic astigmatism of left eye 05/24/2017 Hypermetropia of right eye 05/24/2017 Anemia, unspecified 05/08/2007 Overweight(278.02) 05/08/2007 Estimated Date of Delivery Comme nts Yes 07/27/2024 Based on Ultraso und Resolved Problems Problem Noted Date Diagnosed Date Resolved Date Disruptive mood dysregulation disorder 06/14/2017 12/20/2023 Encounters Date Type Department Care Team Description 06/12/2024 Transcribe Orders [facility] [address] [facility] [address] [place] [address] Amanda Delgado MD 06/11/2024 2:50 PM CDT OB Encounter [facility] [address] [place] [address] Amanda Delgado MD Care (33w3d) 06/11/2024 Travel 06/06/2024 Orders Only [facility] Scanner 1 scan: (1-Ord) INCOMING RECORDS-US, [facility], 06/06/2024 06/06/2024 Orders Only [facility] Scanner 1 scan: (1-Ord) INCOMING RECORDS-LABS, [facility], 06/06/2024 06/04/2024 9:10 AM CDT OB Encounter [facility] [address] [place] [address] Amanda Delgado MD Care (32w3d) 06/04/2024 Travel 05/29/2024 Orders Only [facility] Scanner 1 scan: (1-Ord) [facility] OB PPP, 05/29/2024 05/29/2024 Orders Only [facility] Scanner 1 scan: (1-Ord) [facility], URINE CULTURE, 05/29/2024 03/28/2024 Telephone [facility] [address] [place] [address] Amanda Delgado MD Questions (next steps) from Last 3 Months Immunizations Immunization Administration Dates Next Due COVID-19 vaccine (Pfizer-Bio NTech 30mcg/0.3mL) 12YO+ BIVALENT PF, MDV 02/09/2022 COVID-19 vaccine (Pfizer-Bio NTech 30mcg/0.3mL) 12YO+ DESTINEY-SUCROSE PF, MDV 08/17/2021,02/01/2021 DTaP 03/23/2006,03/13/2006 EDwZ-SzzO-JLZ (Pediarix) 06/26/2005,04/17/2005,1 2004 HIB PRP-OMP (PedvaxHIB) 03/23/2006,03/13,04/17/2005,04/17,02/02/2005,02/02/2005 HPV 9 (Gardasil 9) 12/18/2017,04/11/2017 Hepatitis A (Peds) 11/19/2007,04/23/2007 Inactivated Polio Vaccine 04/11/2017 Influenza Virus, Unspecified 01/04/2006 Influenza, IIV3 (Age >=3 years) 01/04/2006 Influenza, IIV4 11/18/2019,12/18/2017,12/11/2016 MENINGOCOCCAL VACCINE 2 VIAL 2MO-55YO (MENVEO) 02/09/2022,12/11/2016 MMR 04/11/2017 MMRV 01/04/2006 Pneumococcal conj 7-Valent (Prevnar 7) 1 03/06/2005,06/26/2005,04/17/2005,02/02 Tdap 06/11/2024,12/11/2016 Varicella Vaccine 01/24/2017 Family History Medical History [...] Estimated Date of Delivery 12/13/2023 - Present (06/12/2024) 1 07/27/2024 (set by Dona Mccain RN on 12/13/2023 based on Ultrasound on 12/05/2023) Dating Summary Based On SLY GA Diff Last Menstrual Period on 10/13/2023 (Approximate ) 07/19/2024 +1w1d Ultrasound on 12/05/2023 07/27/2024 Working GA:6w3d Vitals Pregravid Weight Height TWG (As of 06/12/2024) Pregrav id BMI 95.7 kg (211 lb) 1.544 m (5' 0.79) 1.91 kg (4 lb 3.2 oz) 40.15 Notes Progress Notes - OB Encounte r - 06/11/2024 - GA:33w3d 06/11/2024 - 33w3d - Liz Delgado MD Patient is here for routine care at 33w3d Concerns: Patient reports decreased movement since yesterday. Did NST today NST: (for decreased movement) FHT: Baseline 140, moderate variability, accels to 170, no decels. reactive NST [place]: No contractions. Baby started moving during NST, patient felt movement. We are working on getting records translated from [place]. She was referred for level 2 ultrasound due to BMI >40, but went to [place] before it could be scheduled. Will replace order for consultation. Patient also needs anesthesia consultation, order placed (for BMI>40) Discussed tour of center center forms certificates Breast pump -prescription printed What to pack Labor support people Kick counts. Signs of labor Signs/symptoms of preeclampsia. Has persistent nasal congestions, discussed safe medications in . Tdap given today No Contractions, bleeding, loss of fluid No Headache, vision changes, edema, right upper quadrant pain. RTC weekly until delivery given poor care and lots of topics to cover prior to delivery. Scott was seen today for care. Diagnoses and all orders for this visit: Supervision of high risk in third trimester (HC) - AMB CONSULT TO MATERNAL- MEDICINE; Future - Breast Pump Purchase; Electric breast pump for home use. Gestational age at delivery: to be determined. Reason for need: separation from . Length of need: 99 months (lifetime use) - Labor Consult by Anesthesiologist Obesity affecting in first trimester, unspecified obesity type (HC) - AMB CONSULT TO MATERNAL- MEDICINE; Future - Breast Pump Purchase; Electric breast pump for home use. Gestational age at delivery: to be determined. Reason for need: separation from . Length of need: 99 months (lifetime use) - Labor Consult by Anesthesiologist Early stage of (HC) - vit 28/iron fum/folic (multivitamin folic acid 1 mg); Take 1 Tablet by mouth once daily. Need for mwnekqymab-agwpygh-scawfoebi (Tdap) vaccine - TDAP VACCINE IM [[id number]] Decreased movements in third trimester, single or unspecified fetus (HC) - NONSTRESS TEST; Future - PA NON-STRESS TEST - PA READING NONSTRESS TEST Amanda Delgado MD .................... 06/11/2024 3:10 PM CC: [facility] Progress Notes - OB Encounte r - 06/04/2024 - GA:32w3d 06/04/2024 - 32w3d - Liz Delgado MD Patient is here for routine care at 32w3d Concerns: returned from [place] 05/29/24. She brings records with her today. (However they are in [facility]-- please see scanned documentation). It appears she had 2-3 visits since leaving here at 8 weeks gestation. Labs: Blood type O+ Had VDRL : negative HIV negative Hemoglobin 12.0 Platelets: [id number] She reports she was treated for UTI while there. Also possible vaginal infection. Glucose tolerance test was within normal limits Ultrasound: 04/14/2024 Placenta is anterior Anatomy showed no apparent malformation or chromosomal abnormalities growth appropriate LIZZ normal US 05/26/2024 Normal anatomy Cephalic position LIZZ normal Normal placenta Estimated Date of Delivery: 07/27/24 Patient was on aspirin for preeclampsia but stopped due to nose bleeds 3 weeks ago and feels well. Does not wish to restart. Some BH contractions No bleeding, loss of fluid No vision changes, edema, right upper quadrant pain. Mild headache yesterday and today, now resolved Baby is moving well Was in ER on day of returning ([facility] I do not have records but will request. TDaP recommended, will get next week. Recommend weekly visits. Will try to get records translated There is mention of needing Hematology and nutrition consultations. Will inquire more with patient next visit. Given vaginal infection history, GCC and TGC were collected today. Amanda Delgado MD .................... 06/04/2024 9:38 AM CC: [facility] Progress Notes - OB Encounte r - 12/20/2023 - GA:8w4d 12/20/2023 - 8w4d - [place], [place] reggie Wheeler MD Clinic Note: First OB Visit 12/20/2023 Scott Pruitt is a 18 y.o. with Estimated Date of Delivery: 07/27/24, here today for a first visit. She is 8w4d. 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 Plans to be [...] Depression 2017 History of BCG vaccination In [place] OVERWEIGHT 05/08/2007 Past Surgical History: . Laterality [...] Male Social History Narrative Merged History Encounter Scott, student 6 th grade, mother/Sehlbi Current Outpatient Medications Medication Sig Dispense Refill [...] substances, daily vitamins, child classes, choosing a windows deployment technician, and regular exams. - Reviewed ordered lab results - Reviewed New [facility]nings and handouts 2. Given BMI >40, recommend level 2 ultrasound and consideration of baby aspirin to prevent preeclampsia. Will start at 12 weeks. 3. Interested in NIPT testing, brochure given. May try to complete in [place]. 4. RTC 4-8 weeks when [place] from [place]. She was encouraged to call the office with any questions or concerns. Amanda Delgado MD .................... 12/20/2023 1:04 PM [facility] [phone] CC: [facility] Progress Notes - OB Encounte r - 12/13/2023 - GA:7w4d 12/13/2023 - 7w4d - Dona Mccain RN Student SUBJECTIVE: Scott Pruitt is a [...] Depression 2017 History of BCG vaccination In [place] OVERWEIGHT 05/08/2007 OB History Para Term AB [...] of estimated date of delivery: No Thalassemia (Telugu, French, Mediterranean, or background): MCV less than 80: No Neural tube defect (Meningomyelocele, Spina bifida, or Anencephaly): No Congenital heart defect: No Down syndrome: Yes (Comment: Maternal aunt has down syndrome) Delmar-Sachs (Ashkenazi Spiritism, Cajun, Portuguese [place]): No Danica disease (Ashkenazi Spiritism): No Familial dysautonomia (Ashkenazi Spiritism): No Sickle cell disease or trait (): No Hemophilia or other blood disorders: No Muscular dystrophy: No Cystic fibrosis: No Harlan's chorea: No Intellectual disability and/or autism: No [...] of Beginnings book and book inserts, discussed hjzt-qqs-dajavla medications, and follow up. - Encouraged patient to call clinic at [phone] with any vaginal bleeding, fluid leaking from [...] Center 12/20/2023 12:45 PM Amanda Delgado MD [facility] Dona Mccain RN .................... 12/13/2023 10:41 AM Last Filed Vital Signs Vital Sign Reading Time Taken Comments Blood Pressure 116/78 06/11/2024 2:49 PM CDT Pulse 101 06/11/2024 2:49 PM CDT Temperature 36.9 C (98.5 F) 12/19/2019 6:04 PM CDT Respiratory Rate 16 12/19/2019 6:04 PM CDT Oxygen Saturation 96% 06/11/2024 2:49 PM CDT Inhaled Oxygen Concentration - - Weight 97.6 kg (215 lb 3.2 oz) 06/11/2024 2:49 P M CDT Height 154.4 cm (5' 0.79) 12/13/2023 1 0:16 AM CDT Head Circumference 48.9 cm 10/25/2006 1:30 PM CDT Head Circumference Percentile 91.92% 10/25/2006 1:30 PM CDT Growth Chart: WHO (Girls, 0- 2 years) Body Mass Index - - Plan of Treatment Upcoming Encounters Date Type Department Care Team (Late st Contact Info) Description 06/18/2024 2:50 PM CDT OB Encounter [facility] [address] [place] [address] Amanda Delgado MD [address] [place] [address] 06/25/2024 2:50 PM CDT OB Encounter [facility] [address] [place] [address] Amanda Delgado MD [address] [place] [address] 07/02/2024 2:50 PM CDT OB Encounter [facility] [address] [place] [address] Amanda Delgado MD [address] [place] [address] 07/09/2024 3:15 PM CDT OB Encounter [facility] [address] [place] [address] Amanda Delgado MD [address] [place] [address] 07/16/2024 3:15 PM CDT OB Encounter [facility] [address] [place] [address] Amanda Delgado MD [address] [place] [address] Health Maintenance Due Date Last Done Comments Well Child Check for age 3-20 02/09/2023 02/09/2022, 11/18/2019, 12/18/2017, Additional history exists Depression screening for age 12+ 02/13/2023 02/13/2022, 02/09/2022, 11/18/2019, Additional history exists COVID-19 vaccine series ( season) 2023 02/09/2022, 08/17/2021, 02/01/2021 Influenza Vaccine (Season Ended) 2024 11/18/2019, 12/18/2017, 12/11/2016, Additional history exists BMI (ht and wt on same day) for age 18+ 2024 12/13/2023, 11/22/2023 Chlamydia for age 16-24 06/04/2025 06/05/19 25, 05/09/2022, 02/09/2022, Additional history exists Tetanus booster 06/11/2034 06/11/2024, 12/11/2016 Pneumococcal series for age 6-49 Aged Out 01/04/2006, 06/26/2005, 04/17/2005, Additional history exists No longer eligible based on patient's age to complete this topic HPV series for age 9-26 Completed 12/18/2017, 04/11 Meningococcal series for age 11-21 Completed 02/09/2022, 12/11/2016 HIV for age 15-65 Completed 12/13/2023 Hepatitis C screening for age 18-79 Completed 12/13/2023 Tdap Completed 06/11/2024, 12/11/2016 RSV vaccine for adults or (No Doses Required) Completed Procedures Procedure Name Priority Date/Time Associated Diagnosis Comments ANESTHESIA CONSULT Routine 06/11/2024 3: 40 PM CDT Supervision of high risk in third trimester (HC) Obesity affecting in first trimester, unspecified obesity type (HC) SCAN CORRESP-LABORATORY RESULTS 06/06/2024 12:00 AM CDT SCAN CORRESP-IMAGING 06/06/2024 12:00 AM CDT TRICHOMONAS, LEONELA, AND BACTERIAL VAGINOSIS BY ROCCO Routine 06/04/2024 10:42 AM CDT Supervision of high risk in third trimester (HC) Vaginal discharge during in third trimester (HC) GC CHLAMYDIA TRACH PROBE Routine 06/04/2024 10:42 AM CDT Supervision of high risk in third trimester (HC) Vaginal discharge during in third trimester (HC) SCAN-PATHOLOGY REPORT 05/29/2024 12:00 AM CDT SCAN-ULTRASOUND REPORT 05/29/2024 12:00 AM CDT HIV 1/2 ANTIGEN/ANTIBODY FOURTH GENERATION W/RFL (QUEST) Routine 12/13/2023 12:00 PM CDT Encounter for supervision of normal first in first trimester (HC) ANTI HCV Routine 12/13/2023 12:00 PM CDT Encounter for supervision of normal first in first trimester (HC) from Last 3 Months or Most Recently Relevant to Health Maintenance Results * SCAN CORRESP-LABORATORY RESULTS (06/06/2024 12:00 AM CDT) us Scanner OTHER Final Result * SCAN CORRESP-IMAGING (06/06/2024 12:00 AM CDT) Anatomical Region Laterality Modality Other us Scanner OTHER Final Result * TRICHOMONAS, LEONELA, AND BACTERIAL VAGINOSIS BY ROCCO (06/04/2024 10:42 AM CDT) LEONELA SPECIES Negative Negative 6:23 PM CDT [facility] TRAL LABORATORY LEONELA GLABRATA Negative Negative 06/04/2024 6:23 PM CDT [facility] TRAL LABORATORY TRICHOMONAS VVA Negative Negative 5 6:23 PM CDT [facility] TRAL LABORATORY BACTERIAL VAGINOSIS Negative Negative 06/04/2024 6:23 PM CDT [facility] TRAL LABORATORY Other VAGINAL SWAB / Unknown Non-Blood / Unknown 06/04/2024 10:42 AM CDT 06/04/2024 10:42 AM CDT us Amanda Delgado MD MICROBIOLOGY Final Resul t [facility] LABORATORY [address] [place] [address], [place] * GC & CHLAMYDIA DNA PCR [[id number]] (06/04/2024 10:42 AM CDT) CHLAMYDIA PROBE Negative 7:20 PM CDT [facility] TRAL LABORATORY N GONORRHOEAE PROBE Negative 06/04/2024 7:20 PM CDT [facility] TRAL LABORATORY Other VAGINAL SWAB / Unknown Non-Blood / Unknown 06/04/2024 10:42 AM CDT 06/04/2024 10:42 AM CDT us Amanda Delgado MD MICROBIOLOGY Final Resul t [facility] [address] [place] [address], [place] * SCAN-PATHOLOGY REPORT (05/29/2024 12:00 AM CDT) us Scanner OTHER Final Result * SCAN-ULTRASOUND REPORT (05/29/2024 12:00 AM CDT) Anatomical Region Laterality Modality Other us Scanner OTHER Final Result * HIV 1/2 ANTIGEN/ANTIBODY FOURTH GENERATION W/RFL (QUEST) (12/13/2023 12:00 PM CDT) HIV AG/AB, 4TH GEN NON-REACT JANE NON-REACT JANE [facility] Comment: HIV-1 antigen and HIV-1/HIV-2 antibodies were [...] purpose. For additional information please refer to http://education.what3words/faq/HUB997 (This link is being provided for informational/ educational purposes only.) The performance of this assay has not been clinically validated in patients less than 2 years old. Blood BLOOD SPECIMEN / Unknown 12/13/2023 12:00 PM CDT 12/13/2023 12:01 PM CDT Narrative [facility] - 12/14/2023 5:58 AM CDT PATIENT UNABLE TO VOID; ADVISED TO RETURN FOR COLLECTION. Amanda Delgado MD SEND OUTS Final Resul t Performing Organization Address City/[facility]/ZIP Co de Phone Number [facility] [address] [place] [address], [facility] [address] [place] [address] * ANTI HCV (12/13/2023 12:00 PM CDT) HEPATITIS C ANTIBODY NON-REACTI VE NON-REACT JANE [facility] Comment: HCV antibody was non-reactive. There is no laboratory evidence of HCV infection. In most cases, no further action is required. However, if recent HCV exposure is suspected, a test for HCV RNA (test code 78246) is suggested. For additional information please refer to http://education.what3words/faq/XOX66r4 (This link is being provided for informational/ educational purposes only.) Blood BLOOD SPECIMEN / Unknown 12/13/2023 12:00 PM CDT 12/13/2023 12:01 PM CDT Narrative [facility] - 12/14/2023 5:58 AM CDT PATIENT UNABLE TO VOID; ADVISED TO RETURN FOR COLLECTION. Amanda Delgado MD SEND OUTS Final Resul t Performing Organization Address City/[facility]/ZIP Co de Phone Number [facility] [address] [place] [address], [place] [phone] [facility] [address] [place] [address] from Last 3 Months or Most Recently Relevant to Health Maintenance Insurance [facility] [employer] Advance Directives Documents on File Type Date Recorded Patient Operations Expert Expl anation Power of Clinical Pharmacy Manager 06/04/2017 3:33 PM POWER OF MACHINE TAPERSUKUMAR, 08/30/16 Care Teams Rail Bonder Relationship Specialty Start Date End Date Amanda Delgado MD [address] [place] [address] PCP - General Family Practice 12/13/23
[2024-06-12 22:05] VITALS: BP 120/79; PULSE 82; RESP 18; TEMP 36.9; O2SAT 96; BMI 40.8
[2024-06-12 22:43] LABS: Strep A DNA Probe* NOT DETECTED (Not Detectd)
[2024-06-12 22:57] LABS: PCR FLU A Negative PCR FLU A (Negative); PCR FLU B Negative PCR FLU B (Negative); SARS PCR* Negative SARS-CoV-2 (Negative)
--- NOTE | 2024-06-12 23:18 | ED_ITS ---
HPI - General Adult General Chief complaint: Cough Stated complaint: cough, sore throat Time Seen by Provider: 06/12/24 23:03 History of Present Illness HPI narrative: This 18-year-old female comes in reporting cough and sore throat that began yesterday. She is 33 weeks . She states that she also feels that her sense of taste and smell or diminished. She is wondering if she might have COVID. She does not report any fevers or shortness of breath. Related Data Home Medications ?Medication ?Instructions ?Recorded ?Confirmed vitamin with calcium 1 tab PO DAILY 12/05/23 06/12/24 no.72-iron 27 mg-folic acid 1 mg tablet ( Vitamins Plus Low Iron) Previous Rx's ?Medication ?Instructions ?Recorded meclizine 25 mg tablet 25 mg PO QID #20 tabs 12/28/23 ondansetron HCl 4 mg tablet 4 mg PO Q6H #20 tabs 12/28/23 Allergies Allergy/AdvReac Type Severity Reaction Status Date / Time No Known Drug Allergies Allergy Verified 06/12/24 22:12 Review of Systems Status of ROS: Reports: 10 or more systems reviewed and unremarkable except as noted in History and below Narrative: Constitutional: No fevers, no weight gain or loss. Eyes: No discharge. No vision changes. HENT: No congestion, no ear pain. She reports a sore throat. Cardiovascular: No chest pain, no palpitations. Respiratory: No shortness of breath, no wheezes. Reports a cough. Gastrointestinal: No abdominal pain, no vomiting, no diarrhea. Genitourinary: No dysuria, no hematuria. Musculoskeletal: Normal range of motion. Skin: No rashes, no pruritis. Neurological: No dizziness, weakness, sensory change, speech change. Endo/Heme/Allergies: No bruising or bleeding. No polydipsia. Pysch: no suicidality, no anxiety, no insomnia. All other systems reviewed and are negative. PFSH [facility] Social History Smoking Status: Never smoker Do you use any of these nicotine containing products: None Second hand tobacco smoke exposure: No How often do you have a drink containing alcohol: never How often do you have six or more drinks on one occasion: Never AUDIT-C Alcohol total score: 0 Non-prescribed substance use: denies use service: No Exam Narrative: Exam Narrative: Constitutional: Well-developed, well-nourished, no acute distress. HEENT: Normocephalic, atraumatic. Oropharynx has mild erythema without exudate or tonsillar hypertrophy. Neck: Normal range of motion. Nontender. Supple. Heart: Regular. No murmurs. Normal rate. Intact distal pulses. Lungs: Clear to auscultation. No chest discomfort. No wheezes, rhonchi, or rales. Abdomen: Normal bowel sounds. Nontender. No rebound tenderness. Gravid at 30 weeks gestation. Genitalia: Deferred. Back: No midline tenderness. Normal range of motion. Extremities: Normal range of motion. No injury. Skin: Intact. No rash. Warm. No erythema or pallor. Neurologic: No altered sensation. No weakness. Alert and oriented. Psychiatric: No suicidality. No anxiety or depression. No insomnia. Nursing notes and vitals signs are reviewed. Const: Vital Signs, click to edit/add: Vital Signs - 24 hr 06/12/24 22:05 Temperature 98.5 F Pulse Rate [Pulse Oximeter] 82 Respiratory Rate 18 Blood Pressure [Ri ght Upper Arm] 120/79 Pulse Oximetry 96 Oxygen Delivery Me thod Room Air Course Vital Signs Vital signs: Initial Vital Signs Respiratory Effort Spontaneous, Non-Labored 06/12/24 22:04 Respiratory Depth Shallow 06/12/24 22:04 Vital Signs Temperature 98.5 F 06/12/24 22:05 Pulse Rate 82 06/12/24 22:05 Respiratory Rate 18 06/12/24 22:05 Blood Pressure 120/79 06/12/24 22:05 Pulse Oximetry 96 06/12/24 22:05 Oxygen Delivery Method Room Air 06/12/24 22:05 Temperature 98.5 F 06/12/24 22:05 Pulse Rate 82 06/12/24 22:05 Respiratory Rate 18 06/12/24 22:05 Blood Pressure 120/79 06/12/24 22:05 Pulse Oximetry 96 06/12/24 22:05 Oxygen Delivery Method Room Air 06/12/24 22:05 Medical Decision Making MDM Narrative Medical decision making narrative: This patient comes in with cough and sore throat as described above. She has normal vital signs. Nasal pharyngeal swab returns negative for COVID and influenza and a strep test also returns negative. The patient states she will use Tylenol as needed and directed for symptomatic relief. Lab Data Labs: Lab Results 06/12/24 Range/Units 22:17 SARS-CoV-2 (PCR) Negative SARS-CoV-2 (Negative) Influenza Type A (PCR) Negative PCR FLU A (Negative) Influenza Type B (PCR) Negative PCR FLU B (Negative) Group A Strep DNA NOT DETECTED (Not Detectd) Discharge Plan Discharge Clinical Impression: Acute upper respiratory infection Patient Disposition: Home, Self-Care Condition: Stable Additional Instructions: Use Tylenol as needed and directed. Follow up with MD as scheduled and needed. Return if worsening. Prescriptions: No Action Vitamin Plus Low Iron 27 mg iron- 1 mg tablet 1 tab PO DAILY ondansetron HCl 4 mg tablet 4 mg PO Q6H Qty: 20 0RF meclizine 25 mg tablet 25 mg PO QID Qty: 20 0RF Follow Up/Referrals: Provider,Not a Local [Primary Care Provider] - Stand Alone Forms: [employer] Info Instructions
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
== END 2024-06-12 23:25 | disposition home or self-care (01) ==
PROVIDERS: Emergency Provider Emergency Medicine Emergency Medical Services
DX: J06.9 Acute upper respiratory infection, unspecified (principal)
CPT/HCPCS: 87631; 87651; 99282; 99283; 99284

== ENCOUNTER 2024-06-15 03:25 | Emergency (ER) | payer MEDICAID, SELFPAY ==
[2024-06-15 03:25] VITALS: BP 125/85; PULSE 82; RESP 16; TEMP 36.6; O2SAT 97; BMI 35.9
--- OUTSIDE RECORDS SUMMARY | 2024-06-15 04:34 | XMS_ITS | Clinical Summary ---
Author Organization [facility] Address [facility] [place] [address] Care Team Providers Care Oven Tender Name Role Phone Amanda Delgado MD Primary Care Provider [phone] Allergies No known active allergies Medications aspirin [...] use) 1 Each 5 025 Discontin ued(*Erro r/blasting entry specialist error) Active Problems Problem Noted Date Diagnosed Date [facility], Supervision of high-risk 12/20/19 24 Overview (06/12/2024): Additional [facility] SRO - 06/12/2024 - Completed [x] Patient name: Scott Pruitt : 2005 Age: 18 y.o. Date of SRO: 06/12/2024 Estimated Date of Delivery: 07/27/24 Gest Age: 33w4d G/P: Current BMI: 41 Reason for referral: Obesity, was in [place] for much of , never had level 2 US/ echo. REFERRING PROVIDER/CLINIC LOCATION/FAX #: Oven Tender Role Contact Info Address Amanda Delgado MD Family Practice [address] [phone] Primary MD approves scheduling of recommended ultrasounds/testing: Yes Please schedule the following: [x] Gloria [] Multiples: [] Consult [x] Ultrasound: - Level 2 (including echo) - 75 minutes and - BPP w/NST - once [] Genetic Counseling [] Before [] After []15 [] 30 []45 []NT []CVS []Amnio [] BMI > 40 [] Technical Customer Support Specialist - Language [] [place] Insurance: Location Specialty Days Any [facility] Clinic [x] In-person [] Can be virtual N/A Comments: RN: ESTELA SHORT RN Gas Charger: GC: /Provider: Date:06/12/2024 Urgency: 4-10 days (delete BPP/NST if you can get her L2 before 34w) []Can be sooner [] Can be split Scott Pruitt : 2005 REFERRING PROVIDER: Amanda Delgado MD, [place], Primary provider approves scheduling of recommended ultrasounds/testing: Yes [facility] ULTRASOUND/TESTING PATIENT Support person name: Technical Customer Support Specialist: Yes - Cambodian ULTRASOUND TYPE: L2 and BPP/NST REASON FOR [...] 8/8, normal fluid 05/26/24 (US done in [place]) EFW 1813 gm, normal fluid (report in Cambodian) 04/14/24 (US done in [place]) EFW 720 gm (report in Cambodian) (PCP)12/05/23 GA: 6w3d SLY: 07/27/24 ECHO: SPECIALISTS/CONSULTS: Include: Specialty MD Clinic Name Phone# [place] and ADDED TO PATIENT CARE TEAM GENETICS: Declines/Not Done CARE COORDINATION: PERTINENT LABS: Passed 2 hr gtt in [place] Blood type: O Positive Antibody screen: negative [...] Care Team Description 06/12/2024 Transcribe Orders [facility] [address] [place] [address] Amanda Delgado MD 06/11/2024 2:50 PM CDT OB Encounter [facility] [address] [place] [address] Amanda Delgado MD Care (33w3d) 06/11/2024 Travel 06/06/2024 Orders Only [facility] Scanner 1 scan: (1-Ord) INCOMING RECORDS-US, [facility], 06/06/2024 06/06/2024 Orders Only [facility] Scanner 1 scan: (1-Ord) INCOMING RECORDS-LABS, [facility], 06/06/2024 06/04/2024 9:10 AM CDT OB Encounter [facility] [address] [place] [address] Amanda Delgado MD Care (32w3d) 06/04/2024 Travel 05/29/2024 Orders Only [facility] Scanner 1 scan: (1-Ord) [facility] OB PPP, 05/29/2024 05/29/2024 Orders Only [facility] Scanner 1 scan: (1-Ord) [facility], URINE CULTURE, 05/29/2024 03/28/2024 Telephone [facility] [address] [place] [address] Amanda Delgado MD Questions (next steps) from Last 3 Months Immunizations Immunization Administration Dates Next Due COVID-19 vaccine (Pfizer-Bio NTech 30mcg/0.3mL) 12YO+ BIVALENT PF, MDV 02/09/2022 COVID-19 vaccine (Pfizer-Bio NTech 30mcg/0.3mL) 12YO+ DESTINEY-SUCROSE PF, MDV 08/17/2021,02/01/2021 DTaP 03/23/2006,03/13/2006 QAoH-UkfZ-HZZ (Pediarix) 06/26/2005,04/17/2005,1 2004 HIB PRP-OMP (PedvaxHIB) 03/23/2006,03/13,04/17/2005,04/17,02/02/2005,02/02/2005 [...] Estimated Date of Delivery 12/13/2023 - Present (06/15/2024) 1 07/27/2024 (set by Dona Mccain RN on 12/13/2023 based on Ultrasound on 12/05/2023) Dating Summary Based On SLY GA Diff Last Menstrual Period on 10/13/2023 (Approximate ) 07/19/2024 +1w1d Ultrasound on 12/05/2023 07/27/2024 Working GA:6w3d Vitals Pregravid Weight Height TWG (As of 06/15/2024) Pregrav id BMI 95.7 kg (211 lb) [...] accels to 170, no decels. reactive NST [place]: No contractions. Baby started moving during NST, patient felt movement. We are working on getting records translated from [place]. She was referred for level 2 ultrasound due to BMI >40, but went to [place] before it could be scheduled. Will replace [...] Tablet by mouth once daily. Need for onvaeikdim-nluslhn-qdlancimy (Tdap) vaccine - TDAP VACCINE IM [[id number]] Decreased movements in third trimester, single or unspecified fetus (HC) - NONSTRESS TEST; Future - SD NON-STRESS TEST - SD READING NONSTRESS TEST Amanda Delgado MD .................... 06/11/2024 3:10 PM CC: [facility] Progress Notes - OB Encounte r - 06/04/2024 - GA:32w3d 06/04/2024 - 32w3d - [place] Delgado MD Patient is here for routine care at 32w3d Concerns: returned from [place] 05/29/24. She brings records with her today. (However they are in Cambodian-- please see scanned documentation). It appears she had 2-3 visits since leaving here at 8 weeks gestation. Labs: Blood type O+ Had VDRL : negative HIV negative Hemoglobin 12.0 Platelets: 625162 She reports she was treated for UTI [...] Was in ER on day of returning ([facility]). I do not have records but will request. TDaP recommended, will get next week. Recommend weekly visits. Will try to get records translated There is mention of needing Hematology and nutrition consultations. Will inquire more with patient next visit. Given vaginal infection history, GCC and TGC were collected today. Amanda Delgado MD .................... 06/04/2024 9:38 AM CC: [facility] Progress Notes - OB Encounte r - 12/20/2023 - GA:8w4d 12/20/2023 - 8w4d - [place] reggie Wheeler MD Clinic Note: First OB Visit 12/20/2023 Scott Pruitt is a 18 y.o. with Estimated Date of Delivery: 07/27/24, here today for a first visit. She is 8w4d. 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 Plans to be [...] substances, daily vitamins, child classes, choosing a teachers' assistant, and regular exams. - Reviewed ordered lab results - Reviewed New Beginnings and handouts 2. Given BMI >40, recommend level 2 ultrasound and consideration of baby aspirin to prevent preeclampsia. Will start at 12 weeks. 3. Interested in NIPT testing, brochure given. May try to complete in [place]. 4. RTC 4-8 weeks when back from [place]. She was encouraged to call the office with any questions or concerns. Amanda Delgado MD .................... 12/20/2023 1:04 PM [facility] [phone] CC: [facility] Progress Notes - OB [...] of estimated date of delivery: No Thalassemia (Dutch, Slovenian, Mediterranean, or background): MCV less than 80: No Neural tube defect (Meningomyelocele, Spina bifida, or Anencephaly): No Congenital heart defect: No Down syndrome: Yes (Comment: Maternal aunt has down syndrome) Delmar-Sachs (Ashkenazi Rastafari, Cajun, Telugu [place]): No Danica disease (Ashkenazi Rastafari): No Familial dysautonomia (Ashkenazi Rastafari): No Sickle cell disease or trait (): [...] of Beginnings book and book inserts, discussed ujdb-gib-rnuoerz medications, and follow up. - Encouraged patient to call clinic at [phone] with any vaginal bleeding, fluid leaking from [...] Center 12/20/2023 12:45 PM Amanda Delgado MD [facility] Dona Mccain RN .................... 12/13/2023 10:41 [...] Description 06/18/2024 2:50 PM CDT OB Encounter [facility] [address] [facility] [place] [address] Amanda Delgado MD [address] [place] [address] 06/25/2024 2:50 PM CDT OB Encounter [facility] [address] [place] [address] Amanda Delgado MD [address] [place] [address] 07/02/2024 2:50 PM CDT OB Encounter [facility] [address] [facility] [place] [address] Amanda Delgado MD [address] [place] [address] 07/09/2024 3:15 PM CDT OB Encounter [facility] [address] [place] [address] Amanda Delgado MD [address] [place] [address] 07/16/2024 3:15 PM CDT OB Encounter [facility] [address] [place] [address] Amanda Delgado MD [address] [place] [address] Health Maintenance Due Date Last Done Comments [...] 10:42 AM CDT) LEONELA SPECIES Negative Negative 5 6:23 PM CDT [facility] LEONELA GLABRATA Negative Negative 06/04/2024 6:23 PM CDT [facility] TRICHOMONAS VVA Negative Negative 5 6:23 PM CDT [facility] BACTERIAL VAGINOSIS Negative Negative 06/04/2024 6:23 PM CDT [facility] Other VAGINAL SWAB / Unknown Non-Blood / Unknown 06/04/2024 10:42 AM CDT 06/04/2024 10:42 AM CDT us Amanda Delgado MD MICROBIOLOGY Final Resul t [facility] [address] [place] [address], [place] * GC & CHLAMYDIA DNA PCR [[id number]] (06/04/2024 10:42 AM CDT) CHLAMYDIA PROBE Negative 7:20 PM CDT [facility] N GONORRHOEAE PROBE Negative 06/04/2024 7:20 PM CDT [facility] Other VAGINAL SWAB / Unknown Non-Blood / Unknown 06/04/2024 10:42 AM CDT 06/04/2024 10:42 AM CDT us Amanda Delgado MD MICROBIOLOGY Final Resul t [facility] [address] [place] [address], [place] * SCAN-PATHOLOGY REPORT (05/29/2024 12:00 AM CDT) us Scanner OTHER Final Result * SCAN-ULTRASOUND REPORT (05/29/2024 12:00 AM CDT) Anatomical Region Laterality Modality Other us Scanner OTHER Final Result * HIV 1/2 ANTIGEN/ANTIBODY FOURTH GENERATION W/RFL ([facility]) (12/13/2023 12:00 PM CDT) HIV AG/AB, 4TH GEN NON-REACT JANE NON-REACT JANE [facility] Comment: HIV-1 antigen and HIV-1/HIV-2 antibodies were [...] purpose. For additional information please refer to http://education.Vaimicom.MarijuanaStocksIndex.com/faq/VGU747 (This link is being provided for informational/ [...] Delgado MD SEND OUTS Final Resul t [facility] [address] [place] [address], [facility] [address] [place] [address] * ANTI HCV (12/13/2023 12:00 PM CDT) HEPATITIS C ANTIBODY NON-REACTI VE NON-REACT JANE [facility] Comment: HCV antibody was non-reactive. There is no laboratory evidence of HCV infection. In most cases, no further action is required. However, if recent HCV exposure is suspected, a test for HCV RNA (test code 76116) is suggested. For additional information please refer to http://education.MobileSnack/faq/CNE26z4 (This link is being provided for informational/ educational purposes only.) Blood BLOOD SPECIMEN / Unknown 12/13/2023 12:00 PM CDT 12/13/2023 12:01 PM CDT Narrative [facility] - 12/14/2023 5:58 AM CDT PATIENT UNABLE TO VOID; ADVISED TO RETURN FOR COLLECTION. Amanda Delgado MD SEND OUTS Final Resul t [facility] [address] [place] [address], [place] [phone] [facility] [address] [place] [address] from Last 3 Months or Most Recently Relevant to Health Maintenance Insurance [facility] MVA [employer] INS Advance Directives Documents on File Type Date Recorded Patient College [employer] Registrar Expl anation Power of Blender Conveyor Operator 06/04/2017 3:33 PM POWER OF LEASE PICKER, SUKUMAR FROST, 08/30/16 Care Teams Oven Tender Relationship Specialty Start Date End Date Amanda Delgado MD [address] [place] [address] PCP - General Family Practice 12/13/23
--- NOTE | 2024-06-15 04:35 | ED_ITS ---
HPI - General Adult General Stated complaint: Ear Pain Time Seen by Provider: 06/15/24 04:34 History of Present Illness HPI narrative: Downtime documentation on Scott Pruitt created in real-time and pasted into electronic record when these services were later available.? Patient is a [age]-year-old female presenting at 33 weeks gestation for bilateral ear pain that started this evening.? Tried uwpv-jzm-wokqsnd ear drops without significant relief.? Tried taking Tylenol at around 7:00 p.m. with some temporary improvement but pain has since worsened and she presents at 330 in the morning to the emergency department.? No drainage from the ears.? No fever.? No headache.? Does have some cough and congestion for the past 3-4 days.? No shortness of breath.? Rates her pain as 10/10 currently.? No history of ear surgery. Reports benign past medical history no long-term medications.? Takes a vitamin.? No allergies.? Nonsmoker.? Denies obstetrical complaints.? ROS is otherwise negative for other generalized HEENT respiratory or obstetrical changes tonight.? On exam temp 37.8? O2 sats 97% on room air respiratory rate 16 heart rate 82 with a blood pressure of 125/85 generally she is awake and alert does not appear distressed.? Does seem mildly uncomfortable but answers qu estions appropriately.? Head is atraumatic eyes with normal-appearing pupils and conjunctiva.? Both ears have some moderate cerumen burden but I can clearly see the TM with manipulation.? External ears are normal in appearance.? Both TMs have slight serous effusion but they do have light reflex present.? No purulent effusion or significant redness.? The nose is congested with clear mucus rhinorrhea the oropharynx with acyanotic lips, moist membranes no erythema or exudate to the pharynx but there is a clear mucus postnasal drip.? Neck is supple, there is no lymphadenopathy.? Normal in appearance.? Heart with regular rate rhythm no murmurs rubs or gallops lungs with good air entry in all lung lubin no wheezes rales or rhonchi. Assessment:? Referred ear pain.? Counseled patient that there does not seem to be sign of an acute bacterial infection, antibiotics are not warranted.? These can be quite painful but are thankfully not harmful to herself or the baby at this time.? Increased blood flow to the nose at this stage of can worsen congestion and this combined with what appears to be a viral infection is likely causing some eustachian tube dysfunction and additional pressure in the ears.? Recommended Tylenol 1000 mg every 6 hours, recommended a trial of Flonase nasal spray 1 spray in each nostril 2 times daily for the next week.? No signs of a bacterial infection but those signs and symptoms were reviewed such as fever, neurological changes, bleeding from the ear drums, etc. as indications for re-evaluation.? If she does not respond of this medication, ipratropium nasal spray may be helpful.? She is welcome to continue the amlk-btr-nutycgo ear drops as well.? Decongestants are not typically helpful nor encouraged in the stage of .? Written instructions provided.? Patient declines Tylenol, stating that she will take it at home.? Keep currently scheduled follow up with her obstetrical provider. Related Data Home Medications ?Medication ?Instructions ?Recorded ?Confirmed vitamin with calcium 1 tab PO DAILY 12/05/23 06/12/24 no.72-iron 27 mg-folic acid 1 mg tablet ( Vitamins Plus Low Iron) Previous Rx's ?Medication ?Instructions ?Recorded meclizine 25 mg tablet 25 mg PO QID #20 tabs 12/28/23 ondansetron HCl 4 mg tablet 4 mg PO Q6H #20 tabs 12/28/23 Allergies Allergy/AdvReac Type Severity Reaction Status Date / Time No Known Drug Allergies Allergy Verified 06/12/24 22:12 [facility] Social History Smoking Status: Never smoker Do you use any of these nicotine containing products: None Second hand tobacco smoke exposure: No How often do you have a drink containing alcohol: never How often do you have six or more drinks on one occasion: Never AUDIT-C Alcohol total score: 0 Non-prescribed substance use: denies use service: No Discharge Plan Discharge Clinical Impression: Referred ear pain Additional Instructions: Patient instructions on Scott Pruitt I apologize for the less professional looking discharge instructions, as discussed, we are on computer downtime tonight, we do this once monthly for required patches and updates. As we discussed, ear pain in adults is often from pressure in the eustachian tube rather than from an ear infection itself.? The eustachian tube is that tube between the middle ear and the back part of the throat that helps her ears pop when you swallow.? Your cold and congestion have caused a postnasal drip that are causing swelling of that to and preventing proper drainage.? There are no signs of a bacterial infection, this is most likely caused by a virus.? This will run its course over the next 5-10 days.? I can see your eardrums and they do not show signs of infection and your ear canals do have a little bit of wax but nothing dangerous at this time.? Once in awhile, viral infections can worsen so if your symptoms are not improving within 5 days or if he start running a high fever, you should make an appointment to be re-evaluated in the clinic or urgent care. There is typically increased blood flow to the nose at this stage of as well which will of course worsen your congestion and make your symptoms more amplified.? For pain, I recommend Tylenol 1000 mg every 6 hours.? Please take another dose as soon as you get home.? I would also recommend you purchase some cmkm-bht-eskzvvt fluticasone nasal spray, often so old as Flonase.? Francis 1 spray in each nostril 2 times daily to help with the swelling and drainage and relieve the pressure in the eustachian tube.? Most people feel quite a bit better after a day or 2 of starting these medications.? Decongestants are not typically helpful.? Salt water gargles may help decrease some of the swelling and pressure in the throat as well and should be performed 3 times daily. If you have bloody drainage from the ear, high fever, severe headache or neurological changes, you should come to an emergency room. Keep your regularly scheduled follow-up appointments with your obstetrical provider. Activity Level: No Restrictions Prescriptions: No Action Vitamin Plus Low Iron 27 mg iron- 1 mg tablet 1 tab PO DAILY ondansetron HCl 4 mg tablet 4 mg PO Q6H Qty: 20 0RF meclizine 25 mg tablet 25 mg PO QID Qty: 20 0RF Follow Up/Referrals: Provider,Not a Local [Primary Care Provider] -
== END 2024-06-15 04:40 | disposition home or self-care (01) ==
LOC: ED 04:38
PROVIDERS: Emergency Provider Family Medicine; PCP Family Medicine
DX: H92.03 Otalgia, bilateral (principal)
CPT/HCPCS: 99283

== ENCOUNTER 2024-06-18 15:50 | Outpatient (CLI) | payer MEDICAID, SELFPAY ==
[2024-06-18 16:05] VITALS: BP 132/60; PULSE 83; PULSE 87; O2SAT 97
[2024-06-18 16:06] VITALS: RESP 16; TEMP 36.8
[2024-06-18 16:37] LABS: Clue Cells No Clue Cells Seen (None Seen); Trichomonas No Trichomonas Seen (None Seen); Yeast No Yeast Seen (None Seen)
[2024-06-18 16:43] LABS: Amnisure Rom* Negative
== END 2024-06-18 17:28 | disposition home or self-care (01) ==
LOC: OB OUT 15:51 → OB 15:52
PROVIDERS: PCP Family Medicine; Visit Provider Family Medicine
DX: O47.03 False labor before 37 completed weeks of gestation, third trimester (principal); Z3A.34 34 weeks gestation of pregnancy
CPT/HCPCS: 59025; 84112; 87210; G0463

== ENCOUNTER 2024-06-25 16:35 | Outpatient (CLI) | payer MEDICAID, SELFPAY ==
--- NOTE | 2024-06-25 16:41 | CRLHL7_ITS ---
For Patients: As a result of the Cures Act, medical imaging exams and procedure reports are released immediately into your electronic medical record. You may view this report before your referring provider. If you have questions, please contact your health care provider. Indication: allison had a FHR decel in clinic SLY: 07/27/2024. Technique: Real-time sonographic images of the pelvis were obtained transabdominally using grayscale, color, and Doppler imaging. Comparison: None. Findings: A single intrauterine is present in cephalic position. Cardiac activity in the fetus is demonstrated at 138 BPM. Placenta: Anterior. No previa or abruption. Amniotic Fluid: Single deepest pocket measures 5.5 centimeter. Biophysical profile: Breathin/2 Movement: 2/2 Tone: 2/2 Fluid volume: 2/2 Total: 10/10 Impression: 1. Single living intrauterine gestation in cephalic presentation, with heartrate 138 BPM. 2. Anterior placenta without previa or abruption. 3. Amniotic fluid with single deepest pocket measuring 5.5 centimeter. 4. BPP 10/10. Dictated by Quique Stringer MD @ 06/25/2024 6:13:45 PM (Electronically Signed)
--- NOTE | 2024-06-25 18:09 | PC.OBNST ---
NST Note NST Note Start: 06/25/24 16:40 Freq: ONCE Status: Active Protocol: Document 06/25/24 16:40 POT (Rec: 06/25/24 18:09 POT [id number]) NST Note 1 Para (# of births) 0 EDC 07/27/24 Gestational Age In Weeks & Days 35 Weeks & 3 Days Patient Presented with Complaint(s) of Other Other Complaints Noted FHR deceleration in clinic. Dr Delgado ordered a BPP Reactive Yes Appropriate for Gestational Age Yes WINIFRED Mckeon p Date 06/25/24 Reactive Yes Appropriate for Gestational Age Yes Ena Mcdonald OB NST charge Yes Complete NST Note via Write Note Yes The provider's electronic signature indicates the NST is reactive/appropriate for gestational age. *Note to provider: If an addendum is required, open the patient's chart and click on the note under the Nurse/Allied Health tab.
== END 2024-06-25 17:50 | disposition home or self-care (01) ==
LOC: OB OUT 16:36 → OB 16:36
PROVIDERS: PCP Family Medicine; Visit Provider Family Medicine
DX: O35.BXX0 Maternal care for other (suspected) fetal abnormality and damage, fetal cardiac anomalies, not applicable or unspecified (principal); Z3A.35 35 weeks gestation of pregnancy
CPT/HCPCS: 59025; 76819; G0463

== ENCOUNTER 2024-07-15 09:34 | Outpatient (CLI) | payer MEDICAID, SELFPAY ==
[2024-07-15 09:43] VITALS: BP 122/76; PULSE 72; PULSE 76; O2SAT 97
[2024-07-15 09:48] VITALS: PULSE 63; O2SAT 97
[2024-07-15 10:09] LABS: Amnisure Rom* Negative
--- NOTE | 2024-07-15 10:34 | PC.OBNST ---
NST Note NST Note Start: 07/15/24 09:39 Freq: ONCE Status: Discharge Protocol: Document 07/15/24 10:32 EA (Rec: 07/15/24 10:33 EA No Response) NST Note 1 Para (# of births) 0 EDC 07/27/24 Gestational Age In Weeks & Days 38 Weeks & 2 Days Patient Presented with Complaint(s) of Leaking fluid Reactive Yes Appropriate for Gestational Age Yes RN Leonardo RN Date 07/15/24 Reactive Yes Appropriate for Gestational Age Yes RN Erica RN Date 07/15/24 OB NST charge Yes Complete NST Note via Write Note Yes The provider's electronic signature indicates the NST is reactive/appropriate for gestational age. *Note to provider: If an addendum is required, open the patient's chart and click on the note under the Nurse/Allied Health tab.
== END 2024-07-15 10:28 | disposition home or self-care (01) ==
LOC: OB OUT 09:35 → OB 09:35
PROVIDERS: PCP Family Medicine; Visit Provider Family Medicine
DX: O47.1 False labor at or after 37 completed weeks of gestation (principal); Z3A.38 38 weeks gestation of pregnancy
CPT/HCPCS: 59025; 84112; G0463

== ENCOUNTER 2024-07-23 13:03 | Inpatient (IN) | payer MEDICAID, SELFPAY ==
[2024-07-23] VITALS (28 sets, daily range): BP systolic 124–144; BP diastolic 81–96; PULSE 63–104; TEMP 36.6–36.8; O2SAT 96–99; BMI 42.9
[2024-07-23 11:53] LABS: Amnisure Rom* Negative
[2024-07-23 14:50] LABS: Basophils Absolute Auto 0.02 K/uL (0.00-0.30); Basophils Percent Auto 0.2 % (0.0-3.0); Eosinophils Percent Auto 2.2 % (0.0-7.0); Hematocrit 38.3 % (33.0-51.0); Hemoglobin* 12.8 gm/dL (12.0-16.0); Immature Granulocytes Abs Auto 0.05 K/uL (0.00-0.30); Immature Granulocytes Pct Auto 0.6 %; Lymphocytes Percent Auto 19.2 % (20-44); Mean Corpuscular HGB Conc 33 gm/dL (32-36); Mean Corpuscular Hemoglobin 29 pg (26-34); Mean Corpuscular Volume 87 fL (80-100); Monocytes Percent Auto 4.9 % (0.0-11.0); Neutrophils Percent Auto 72.9 % (42.0-72.0); Platelet Count* 198 K/uL (140-440); RDW Coefficient of Variation % 13.7 % (11.5-15.5); Red Blood Count 4.38 m/uL (4.00-5.20); White Blood Count* 8.98 K/uL (4.50-11.00)
[2024-07-23 14:58] LABS: Slide Review Reflex No
[2024-07-23] MEDS: OXYTOCIN 30 unit/500 ML in NS 30 UNIT/500 ML BAG IVPB (15:38)
[2024-07-23] MEDS: LACTATED RINGERS 1000 ML 1,000 ML 125 ML IV ×2 (15:38→23:42)
--- NOTE | 2024-07-23 18:24 | PM.OBHPLI ---
OB - H&P: HPI Labor/Induction History of Present Illness Time Seen by Provider: 18:24 Date Seen: 07/23/24 Chief Complaint: The patient is a 18 year old 1 para 0 at 39.3 weeks gestation by LMP and consistent with 6 week ultrasound, who presents with concern of possible ROM. Amnisure was negative, but baby had a 2 minute decel to 90, so we elected to keep patient for IOL for BMI >40 (planned for later this week). MPP had asked for delivery by due date. SLY is 07/27/24. Chief complaint: Maternity : 1 Para: 0 Indications for induction: other (Maternal obesity) Narrative: Scott Pruitt is a 18 year old 1 para 0 at 39.3 weeks gestation by LMP and consistent with 6 week ultrasound, who presents with concern of possible ROM. Amnisure was negative, but baby had a 2 minute decel to 90, so we elected to keep patient for IOL for BMI >40 (planned for later this week). MPP had asked for delivery by due date. SLY is 07/27/24. Patient had poor care, was in [place] from 8 weeks to 33 weeks. Had level 2 ultrasound at 36 weeks which was limited. Did have some ultrasounds in [place] and a Glucose tolerance test. Ultrasounds were reviewed and translated, mostly BPPs. Patient reports waking in area of wetness this morning, amnisure negative Did have BPP 8/8 at clinic this morning. Had anesthesia consultation this morning. FOB is in [place]. patient's support person is her sister. History of Present Dating criteria: based on LMP (consistent with 6 week ultrasound) care: limited care (was in [place] from8-33 weeks) Ultrasounds: normal 1st trimester US and normal mid trimester US Abnormal ultrasound findings: Normal anatomy that was visualized, though limited at 36 weeks of age. Measuring 26%ile. Specifically, echo, right arm/leg and abdominal cord insertion were not well visualized and placental cord origin may be marginal. Medical complications: none Labs Blood type: O (+) positive Rubella: immune RPR/VDLR: nonreactive GBS status: negative HBsAG: negative Review of Systems Status of ROS: Reports: 10 or more systems reviewed and unremarkable except as noted in History and below Meds Home Medications and Allergies Home Medications ?Medication ?Instructions ?Recorded ?Confirmed ?Type vitamin with calcium 1 tab PO DAILY 12/05/23 07/23/24 History no.72-iron 27 mg-folic acid 1 mg tablet ( Vitamins Plus Low Iron) ondansetron HCl 4 mg tablet 4 mg PO Q6H #20 tabs 12/28/23 07/23/24 Rx aspirin 81 mg tablet,delayed 81 mg PO DAILY 07/15/24 07/23/24 History release Allergies Allergy/AdvReac Type Severity Reaction Status Date / Time No Known Drug Allergies Allergy Verified 07/23/24 12:03 OB - H&P: Exam Physical Exam: Vital signs: Temp Pulse BP Pulse Ox 98 F 90 134/87 98 07/23/24 16:36 07/23/24 16:59 07/23/24 16:59 07/23/24 15:01 Constitutional: Constitutional: no acute distress Routine HEENT Exam: Head: Present atraumatic and normal inspection Routine Neck Exam: Neck: Present full ROM Detailed Neck Exam: Thyroids: Thyroid: Present normal Routine Respiratory Exam: Respiratory: Present CTA bilaterally Routine Cardiovascular Exam: Cardiovascular: RRR, S1 and S2 Detailed Labor and Delivery Exam: Patient Gravid: Yes Dilation (cm): 3 Effacement (%): 80 Cervix position: mid Consistency: medium Cervical ripeness score: 8 Contraction frequency (min): 7 Comments: Cervical exam by Dr. Khan Fetus (Single): Station: -2 Amniotic Membrane Status: intact Heart Rate Baseline: 135 Monitor Accelerations: Present Monitor Decelerations: Variable Health Communications Specialist Variability: Moderate (6-25) Routine Extremities Exam: Extremities: Absent calf tenderness Routine Skin Exam: Present intact Routine Neurological Exam: Present alert and oriented X3 Routine Psychiatric Exam: Present anxious OB - Results Labs Labs: Short CBC 07/23/24 Range/Units 14:41 WBC 8.98 (4.50-11.00) K/uL Hgb 12.8 (12.0-16.0) gm/dL Hct 38.3 (33.0-51.0) % Plt Count 198 (140-440) K/uL OB - Problem Based A/P Additional Plan (1) Term : Status: Acute (2) Obesity affecting : Problem details: Pre BMI of >40, Total weight gain 17 lbs Status: Acute (3) Poor patient attendance of care: Problem details: Was in [place] from 8-33 weeks. Anatomy screen limited at 36 weeks, may have marginal cord, right arm/leg not seen, echo not completed, abdominal cord insertion not noted. Status: Acute (4) Elevated blood pressure affecting in third trimester, antepartum: Problem details: 1 elevated BP with diastolic >90. If repeat, will do labs. Patient is counseled to monitor for signs/symptoms of preeclampsia. Status: Acute Delivery/Labor/Induction Plan Plan: induction Induction method: per pitocin protocol
[2024-07-23 19:10] LABS: Alanine Aminotransferase* 27 U/L (4-35); Blood Urea Nitrogen* 16 mg/dL (5-24); Creatinine* 0.5 mg/dL (0.6-1.2); Est. Creatinine Clearance* 136.56; Estimated Glomerular Filt Rate 138 ml/min
[2024-07-23 19:16] LABS: Aspartate Amino Transferase* 63 U/L (12-35)
[2024-07-23 19:40] LABS: Total Protein Urine 133 mg/dL
[2024-07-23 19:41] LABS: Creatinine Urine 108.9 mg/dL; Protein Creatinine Ratio Urine 1.22 (0-0.19)
--- NOTE | 2024-07-23 22:43 | P.OBPN_ITS ---
Subjective Time Seen by Provider: 22:43 Date Seen: 07/23/24 Narrative: Patient is on 6 of pitocin. She is not feeling any contractions. Pitocin had to be decreased for a decel just after 7pm, was restarted at 3 of pitocin and titrated without significant decel. Discussed risks/benefits of AROM. Patient wishes to proceed. Objective Vital Signs: Last Vital Signs Temp 97.8 F 07/23/24 19:34 Pulse 70 07/23/24 22:41 BP 144/96 H 07/23/24 22:41 Pulse Ox 99 07/23/24 22:41 Comments: Patient has had elevated BP (first at 1630, 2nd later now at 22:41 with a few others between). Not in severe range, highest 144/96. Prot/cr ratio is 1.22. AST elevated at 63 ALT within normal limits Cr ok platelets ok Pelvic Exam Dilation (cm): 4 Effacement (%): 80 Station: -2 Contractions Monitor mode: External Contraction Frequency: irregular, every 3-6 minutes Contraction pattern: Irregular Contraction intensity: Moderate Pitocin Rate (mU/min): 6 Assessment Assessment: induction ongoing Station: -2 Amniotic Membrane Status: AROM (blood tinged fluid) Status: Category ll Heart Rate Baseline: 135 Senior Care Variability: Moderate (6-25) Monitor Accelerations: Present Monitor Decelerations: Late (x 1 after AROM) Tracing Comments: Had prolonged decel to 90s 3 times today, random, recovered with position changes. Has had reassuring tracing x >2 hours Labor Progress: Progressing slowly with induction of labor. Plan Plan: - AROM now of moderate amount of blood tinged sputum. Patient and baby tolerated well - Continue pitocin titration as able, may need IUPC to monitor contractions-- will assess. - now meets criteria for preeclampsia without severe features. Will recheck labs in am. Monitor bp closely. - Anticipate
--- NOTE | 2024-07-23 23:44 | PM.OBPNL ---
Subjective Time Seen by Provider: 23:44 Date Seen: 07/23/24 Narrative: Nursing is having difficulty tracing patient, requesting internal monitors. Patient is more uncomfortable, breathing through contractions. Objective Exam: uncomfortable appearing Vital Signs: Last Vital Signs Temp 97.8 F 07/23/24 19:34 Pulse 70 07/23/24 22:41 BP 144/96 H 07/23/24 22:41 Pulse Ox 99 07/23/24 22:41 Pelvic Exam Dilation (cm): 4.5 Effacement (%): 80 Station: -2 Contractions Monitor mode: Internal Contraction Frequency: 3-4 min Contraction pattern: Regular Contraction intensity: Strong/Firm Pitocin Rate (mU/min): 6 Assessment Assessment: induction ongoing Station: -2 Amniotic Membrane Status: AROM (blood tinged fluid) Status: Category ll Heart Rate Baseline: 135 Intermediate Variability: Moderate (6-25) Monitor Accelerations: Present Monitor Decelerations: Variable Tracing Comments: occasional variable decels Plan Plan: - titrate pitocin to adequate MVUs - internal monitors (IUPC and Scalp) placed without difficulty - continue to monitor for signs/symptoms of preeclampsia - Anticipate .
[2024-07-24] VITALS (128 sets, daily range): BP systolic 95–151; BP diastolic 50–92; PULSE 55–133; RESP 14–18; TEMP 36.6–37.1; O2SAT 90–100
[2024-07-24] MEDS: BUPIVACAINE 0.25% PF 10 ML 10 ML ML EPIDURAL (00:46)
[2024-07-24] MEDS: ROPIVACAINE 0.2% 100 ml 100 ML 12 MG EPIDURAL (00:50)
--- NOTE | 2024-07-24 00:57 | PM.ANBPRC ---
[facility] Medical History (Updated 07/23/24 @ 22:50 by Amanda Delgado MD) History of BCG vaccination ?Z92.29 - Personal history of other drug therapy (ICD-10) HSP (Henoch Schonlein purpura) ?D69.0 - Allergic purpura (ICD-10) Surgical History S/P appendectomy ?Z90.49 - Acquired absence of other specified parts of digestive tract (ICD-10) Social History What is your current living situation?: I presently have a place to live Problems where you live: no known problems In the past 12 months, utilities in danger of being shut off: no In past 12 months, lack of transportation kept you from medical appts, meetings, work, or getting things needed for daily living: no In the past 12 mos, have been you worried that your food would run out before you had money to buy more?: never true In the past 12 mos, the food you bought just didn't last and you didn't have money to buy more?: never true Smoking Status: Former smoker Do you use any of these nicotine containing products: None Second hand tobacco smoke exposure: No How often do you have a drink containing alcohol: never How often do you have six or more drinks on one occasion: Never AUDIT-C Alcohol total score: 0 Non-prescribed substance use: denies use How often does anyone, including family, friends and others, physically hurt you: never How often does anyone, including family, friends and others, insult or talk down to you: never How often does anyone, including family, friends and others, threaten you with harm: never How often does anyone, including family, friends and others, scream or curse at you: never service: No Meds Home Medications and Allergies Home Medications ?Medication ?Instructions ?Recorded ?Confirmed ?Type vitamin with calcium 1 tab PO DAILY 12/05/23 07/23/24 History no.72-iron 27 mg-folic acid 1 mg tablet ( Vitamins Plus Low Iron) ondansetron HCl 4 mg tablet 4 mg PO Q6H #20 tabs 12/28/23 07/23/24 Rx aspirin 81 mg tablet,delayed 81 mg PO DAILY 07/15/24 07/23/24 History release Allergies Allergy/AdvReac Type Severity Reaction Status Date / Time No Known Drug Allergies Allergy Verified 07/23/24 12:03 Results Labs Labs: Laboratory Results - last 24 hr 07/23/24 07/23/24 07/23/24 14:41 19:19 Unknown WBC 8.98 RBC 4.38 Hgb 12.8 Hct 38.3 MCV 87 MCH 29 MCHC 33 RDW Coeff of Guera 13.7 Plt Count 198 Neut % (Auto) 72.9 H Lymph % (Auto) 19.2 L [place] % (Auto) 4.9 Eos % (Auto) 2.2 Baso % (Auto) 0.2 Neut # (Auto) 6.50 Lymph # (Auto) 1.70 [place] # (Auto) 0.40 Eos # (Auto) 0.20 Baso # (Auto) 0.02 Abs Immat Gran (auto) 0.05 Imm/Tot Granulo (auto) 0.6 BUN 16 Creatinine 0.5 L Estimated Creat Clear 136.56 Estimated GFR 138 AST 63 H ALT 27 Urine Creatinine 108.9 Protein/Creatinin Ratio 1.22 H Urine Total Protein 133 Membrane Rupture Negative Blood Type O Positive Antibody Screen NEGATIVE Vital Signs Vital Signs: Last Vital Signs Temp 97.8 F 07/23/24 19:34 Pulse 94 07/24/24 00:56 BP 133/83 07/24/24 00:56 Pulse Ox 99 07/24/24 00:53 Weight: 102.965 kg Height: 154.94 cm Anesthesia Procedures Epidural Insertion Patient Location: OB Start Time: 00:10 Stop Time: 01:00 Start Date: 07/24/24 Stop Date: 07/24/24 Reason for Block: procedure for pain Patient Position: sitting Performed By: Filiberto Love Preanesthetic Checklist: IV checked, risks and benefits discussed, surgical consent, monitors and equipment checked, pre-op evaluation, timeout performed and anesthesia consent Prep: chlorhexidine gluconate Monitoring: blood pressure monitoring, continuous pulse oximetry and heart rate Approach: midline Vertebral Space: lumbar (1-5) Epidural Technique: VU saline Needle Type: Tuohy needle Injection Technique: continuous catheter Needle gauge: 17 Needle Length (cm): 10 cm Needle Insertion Depth (cm): 8 Catheter Gauge: 19 Catheter Type: multi-orifice Catheter at skin depth (cm): 14 Test Dose Result: negative and lidocaine 1.5% with epinephrine 1 to 200,000
[2024-07-24] MEDS: PHENYLEPHRINE 100 MCG/ML SYRINGE IVP ×3 (01:09→02:36)
[2024-07-24] MEDS: ePHEDrine sulfate 5 MG/ML inj 10 MG IVP (02:41)
--- NOTE | 2024-07-24 02:54 | PM.OBPNL ---
Subjective Time Seen by Provider: 02:58 Date Seen: 07/24/24 Narrative: I was called to bedside for recurrent decels. Patient had good pain control with epidural. Objective Exam: resting comfortably on left side Vital Signs: Last Vital Signs Temp 98.1 F 07/24/24 01:41 Pulse 93 07/24/24 02:52 BP 124/61 07/24/24 02:52 Pulse Ox 99 07/24/24 02:53 Pelvic Exam Dilation (cm): 4.5 Effacement (%): 80 Station: -2 Contractions Monitor mode: Internal Contraction pattern: Regular Contraction intensity: Strong/Firm Pitocin Rate (mU/min): 0 Assessment Assessment: induction ongoing Station: -2 Amniotic Membrane Status: AROM (blood tinged fluid) Status: Category ll Heart Rate Baseline: 135 Correction Variability: Moderate (6-25) Monitor Accelerations: Present Monitor Decelerations: Late Tracing Comments: Patient had recurrent late decels to 90. Improved with position changes, fluid bolus and treating hypotension. Now has early decels, but late decels ahve resolved. Labor Progress: MVUs have been adequate since IUPC placed at 2310 Plan Plan: Recurrent late decels, likely secondary to position and hypotension (had been on back for catheter placement). Improved now. ongoing labor induction. - Adequate MVU for almost 4 hours - not in active labor. Will restart pitocin at 4, titrate up as able.
[2024-07-24] MEDS: LACTATED RINGERS 1000 ML 1,000 ML 75 ML IV (04:07)
[2024-07-24] MEDS: LIDOCAINE 1 % PF 30 ML INJECTION (06:55)
[2024-07-24] MEDS: miSOPROStoL 800 MCG/4 TABLET PR (07:08)
--- NOTE | 2024-07-24 07:40 | W.PM.OBVAGDE ---
OB Procedure Vag Delivery Mother Details Mother Details: The patient is a 18 year-old, 1, Para 0, admitted on 07/23/24 at 38.4 Days gestation for induction of labor for BMI>40. Did develop preeclampsia without severe features during labor. : 1 Para: 0 Weeks Gestation: 39.4 Admission Date: 07/23/24 Additional Details Amniotic Membrane Status: AROM Amniotic Membrane Rupture Date: 07/23/24 Amniotic Membrane Rupture Time: 22:32 Amniotic Membrane Fluid Description: Clear Analgesia/Anesthesia Type: Epidural Waterbirth: No Pitcoin: Yes Intrapartal Events: Labor Induction Induction Method: per pitocin protocol and AROM Labor Onset: 22:32 Complete: 05:31 Pushin:49 Heart: heart tones during second stage had deep decels to 90, improved with position changes. Maintained good variability with intermittent accels. Delivery Details Delivery Date: 07/24/24 Delivery Time: 06:44 Route of delivery: Infant Gender: Female Viability: Alive; Heart Rate Present Position at Delivery: OA Delivery Details: Patient was admitted for IOL for BMI >40 and decel during triage. Was favorable, so pitocin was started and titrated. AROM was completed of clear fluid. Patient received epidural for analgesia and did well with this. Did require treatment of hypotension and baby did have recurrent late decels during hypotension. Patient became complete at 0531. Started pushing at 0549. Baby delivered via spontaneous vaginal delivery over intact perineum. Infant was placed on maternal abdomen.? Cord was clamped and cut after a 30-60 second delay by grandmother of patient who was in attendence. Nose and mouth were bulb suctioned.? weight pending. 1 Minute Interval Total Score: 7 5 Minute Interval Total Score: 8 Additional Details Shoulder Dystocia: No Placenta Delivery Time: 06:51 Placental Delivery Description: Spontaneous Delivery repair: Vicryl Procedure Done: Global Blood Loss: 175 Laceration: Vaginal - 2nd Degree Blood Loss Measurement Type: QBL Bakri Used: No Sponge/Need Count Correct: Yes Cord Vessel Description: 3 Vessels Event Summary Status: Placenta was delivered, but had significant trailing membranes. Placenta is notable for marginal cord insertion. Mother and infant were stable after delivery. Patient had a bit of additional bleeding, so cytotec was given in addition to pitocin. Mom and baby are doing well at the time of this note. Disposition: floor
[2024-07-24 08:21] LABS: Hematocrit 35.9 % (33.0-51.0); Hemoglobin* 12.1 gm/dL (12.0-16.0); Mean Corpuscular HGB Conc 34 gm/dL (32-36); Mean Corpuscular Hemoglobin 30 pg (26-34); Mean Corpuscular Volume 88 fL (80-100); Platelet Count* 177 K/uL (140-440); White Blood Count* 15.15 K/uL (4.50-11.00)
[2024-07-24 08:34] LABS: Slide Review Reflex No
[2024-07-24 08:41] LABS: Alanine Aminotransferase* 25 U/L (4-35); Aspartate Amino Transferase* 43 U/L (12-35); Creatinine* 0.6 mg/dL (0.6-1.2); Estimated Glomerular Filt Rate 133 ml/min
[2024-07-24] MEDS: IBUPROFEN 600 MG TABLET PO ×2 (11:27→17:43)
[2024-07-24] MEDS: ACETAMINOPHEN 500 MG TABLET 1000 MG PO ×2 (14:48→23:37)
[2024-07-25 05:02] VITALS: BP 125/86; PULSE 78; RESP 16; TEMP 36.5; O2SAT 98
[2024-07-25 06:41] LABS: Hemoglobin* 10.5 gm/dL (12.0-16.0)
--- NOTE | 2024-07-25 08:03 | PM.OBPNVD1 ---
OB - PN:Subj Subjective Time Seen by Provider: 07:15 Date Seen: 07/25/24 Interval history: pt seen in routine rounds. Pt reports doing well. . RN reports good colostrum. Lochia reported as scant. No pain. ambulating, voiding, tolerating orals well. BP's all < 130/80 since yesterday 9am. pt would like to go home later today. RN's report she has good support Patient comments OB post-: no complaints and pain well controlled OB - PN: Obj Exam Physical Exam: Vital signs: Temp Pulse Resp BP Pulse Ox O2 Del Method 97.7 F 78 16 125/86 98 Room Air 07/25/24 05:02 07/25/24 05:02 07/25/24 05:02 07/25/24 05:02 07/25/24 05:02 07/25/24 05:02 Constitutional: Constitutional: no acute distress and cooperative Routine HEENT Exam: Head: Present normal inspection Routine Abdominal Exam: Fundus: Present firm (at umbilicus ) OB - PN: Obj Data Labs Labs: Laboratory Results - last 24 hr 07/24/24 07/25/24 08:07 06:25 WBC 15.15 H RBC 4.10 Hgb 12.1 10.5 L Hct 35.9 MCV 88 MCH 30 MCHC 34 Plt Count 177 Creatinine 0.6 Estimated Creat Clear 113.80 Estimated GFR 133 AST 43 H ALT 25 OB - PN: A/P Delivery Assessment and Plan (1) Term : Status: Acute (2) Obesity affecting : Problem details: Pre BMI of >40, Total weight gain 17 lbs Status: Acute (3) Poor patient attendance of care: Problem details: Was in [place] from 8-33 weeks. Anatomy screen limited at 36 weeks, may have marginal cord, right arm/leg not seen, echo not completed, abdominal cord insertion not noted. Status: Acute (4) Preeclampsia: Problem details: Based on Elevated BP during IOL 07/23 and prot/cr ratio of 1.22. Elevation of liver enzymes, but not double upper limit of normal. Status: Acute Assessment and Plan: -BP's below treatment level -ALT decreased yesterday 63 down to 43 -discussed concerning s/s with pt Plan Comments: pt would like d/c home later today. Discussed having come see today and see how day goes. if doing well, can d/c later today or could stay until tomorrow depending on how day goes. Would do BP check Sunday if goes home. discussed with RN
[2024-07-25 08:31] VITALS: BP 120/82; PULSE 74; RESP 16; TEMP 36.7; O2SAT 98
[2024-07-25 13:10] VITALS: BP 115/80; PULSE 86; RESP 16; O2SAT 97
--- NOTE | 2024-07-25 13:55 | PM.ANPOST ---
Post Anesthesia Note Post Anesthesia Note Patient seen: Inpatient Respiratory Status: adequate Cardiovascular Status: adequate Mental Status: baseline Pain: adequate Temp: baseline Anesthetic awareness: N/A Complications: none Follow care: none
[2024-07-25 16:37] VITALS: BP 114/80; PULSE 84; RESP 16; O2SAT 96
--- NOTE | 2024-07-25 17:04 | P.DS_ITS ---
DS: Providers Provider Time Seen by Provider: 07:15 Date Seen: 07/25/24 Date of admission: 07/23/24 13:03 Primary care physician: Amanda eDlgado MD Admitting Clinician: Jolanta Khan MD Attending Physician on discharge: Amanda Delgado MD Date of Discharge: 07/25/24 DS: Diagnosis Discharge Diagnosis (1) Preeclampsia: Status: Acute Problem details: Based on Elevated BP during IOL 07/23 and prot/cr ratio of 1.22. Elevation of liver enzymes, but not double upper limit of normal. Improving on recheck. (2) (normal spontaneous vaginal delivery): Status: Acute Exam Const: Vital Signs, click to edit/add: Vital Signs - 24 hr 07/24/24 20:59 07/24/24 23:38 07/25/24 05:02 Temperature 98.6 F 98.0 F 97.7 F Pulse Rate [Pulse Oximeter] 81 80 78 Respiratory Rate 16 16 16 Blood Pressure [Ri ght Arm] 113/77 116/80 125/86 Pulse Oximetry 97 98 98 Oxygen Delivery Me thod Room Air Room Air Room Air 07/25/24 08:31 07/25/24 13:10 07/25/24 16:37 Temperature 98.0 F Pulse Rate [Pulse Oximeter] 74 86 84 Respiratory Rate 16 16 16 Blood Pressure [Ri ght Arm] 120/82 115/80 114/80 Pulse Oximetry 98 97 96 Oxygen Delivery Me thod Room Air Room Air Room Air Common normals: no apparent distress, healthy appearing and alert : Uterus: U/U and firm Neuro: Sensorium/orientation: alert OB - DS: Summary Hospital Course Hospital Course: The patient is a 18 year old G 1 P 0 at 39w4d gestation that was admitted to the Center on 07/23/24 for induction due to heart decel on monitoring, obesity, marginal cord. She developed preeclampsia during induction/labor withOUT severe features. ALT was elevated but not twice upper limit normal and level improved on recheck down from 63 to 43. She went on to have a vaginal delivery. She delivered a viable female infant. She is breast feeding. the patient has done well. BP's below 140/90 and no sxs. lochia decreasing. Ambulating, voiding, tolerating orals and requests d/c today. Peripartum Data Laceration description: Perineal - 2nd Degree [place] Infant Gender: Female Time Spent with Patient Time attestation: Total time spent providing and/or coordinating discharge services: Discharge Plan Discharge Disposition: Home, Self-Care Date of Admission: 07/23/24 13:03 Primary Care Provider: Amanda Delgado Condition: Stable Anticipated Discharge Date/Time: 07/25/24 17:11 Discharge Medications: Continued Vitamin Plus Low Iron 27 mg iron- 1 mg tablet 1 tab PO DAILY Discontinued aspirin 81 mg tablet,delayed release (DR/EC) 81 mg PO DAILY ondansetron HCl 4 mg tablet 4 mg PO Q6H Qty: 20 0RF Discharge Orders: Discharge Order (Routine); Ordered 07/25/24 Ordered By: Roseanna Pena Patient Education: OB Vaginal/Breast Feeding Additional Instructions: Patient verbalized understanding of reviewed discharge instructions. Activity Detail: pelvic rest x 6 weeks Discharge Diet: Regular Follow Up Appointments: Amanda Delgado MD [Primary Care Provider, Family Practice] Referral Note: schedule [address] Delgado Forms: MyHealth Info Instructions Discharge Comments: Check BP once a day. Bring log to visits
== END 2024-07-25 18:47 | disposition home or self-care (01) | DRG 807 ==
LOC: OB OUT 13:03 → OB 13:03
PROVIDERS: Admitting Provider Family Medicine; PCP Family Medicine; Visit Provider Family Medicine
DX: O99.214 Obesity complicating childbirth (principal); O14.04 Mild to moderate pre-eclampsia, complicating childbirth; O76 Abnormality in fetal heart rate and rhythm complicating labor and delivery; I95.9 Hypotension, unspecified; O70.1 Second degree perineal laceration during delivery; O43.193 Other malformation of placenta, third trimester; Z37.0 Single live birth; Z3A.39 39 weeks gestation of pregnancy
CPT/HCPCS: 01967; 36415; 82565; 82570; 84112; 84156; 84450; 84460; 84520; 85018; 85025; 85027; 86592; 86850; 86900; 86901; 88307; A9270; J0665; J2003; J2795; J7120

== ENCOUNTER 2024-07-30 15:31 | Outpatient (CLI) | payer MEDICAID, SELFPAY ==
--- NOTE | 2024-07-30 16:55 | W.PM.LAC.MC ---
Consult Note - Mom Date of Visit Date of visit: 07/30/24 Reason for consultation: Assistance Needed and Infant Weight Concern Visit Code: Visit Patient's Information Phone number: [phone] : 1 Para: 1 Allergies No Known Drug Allergies Allergy (Verified 07/23/24 12:03) Mother's Medical History: Medical History (Updated 07/25/24 @ 17:05 by Roseanna Pena, DO) History of BCG vaccination ?Z92.29 - Personal history of other drug therapy (ICD-10) HSP ([place] Sch[place] purpura) ?D69.0 - Allergic purpura (ICD-10) Work Plans: return to work in September Delivery Information Delivery type: Vaginal Gestational Age: 38+4 Gestational Weight For Age: AGA Weight: 3.075 kg Discharge Weight: 2.812 kg Baby's Information Baby's Age at Visit: 6 days Baby's Provider or Clinic: [facility] Jaundice: No Past Experience Past Experience: No Current Frequency of Day Feedings: every 2 hours, waking for feedings Both Breasts: No Pumping Pumping: Yes (3x yesterday, 2x so far today) Quantity Pumped: 2-3 oz Supplementing EBM Supplement: Yes Formula Supplement: Yes (taking 2 oz every 2 hours or so) Baby Elimination Number of Wet Diapers a Day: 6 so far today Number of BM a Day: 3 or 4 so far today Breast/Nipple Condition Breast Information: Breasts are symmetrical with rounded lower quadrants, intramammary distance is less than 1.5 inches. No erythema. Nipples are supple, everted prior to feeding. Breast Shape: Round Engorgement: No Maternal Nipple Condition - Left: Common Nipple Maternal Nipple Condition - Right: Common Nipple Sore Nipples: Yes (mild) Interventions for Sore Nipples: Lansinoh/Nipple Cream Baby Assessment Skin: Normal Tongue/frenulum: Normal/elastic Palate: Average Lips: Relaxed and Symmetrical Jaw Alignment: Symmetrical Mucosa: [place], moist Onsite Observation Pre-Feed weight: 3.06 kg Assessments/Interventions Assessments/Interventions: Mom is choosing to pump and bottle feed for now rather than breastfeed due to scare of baby not getting enough and ending up in the ER Discussed need for more frequent milk removal if she wants to develop a full milk supply-needs to mimic baby eating for her body to understand it needs to make milk Discussed pumping every 3 hours during the day, maybe one 4-hr stretch at night once baby is sleeping longer Discussed baby's need for milk: 1.5 oz if eating every 2 hours, closer to 2 oz if eating every 3 hours Mom has a [employer] pump-seems to not be working beyond one pump session when it should last for 3-4 pumps; encoauraged mom to call [facility] and check on any issues they can help her with Discussed with mom she could try putting baby to breast a few times a day and see if baby can latch better and transfer milk now that milk is in more; mom will consider this option but isn't ready to try it yet. Education provided: Early feeding cues to maximize timing of latching, Asymmetric latch technique for wide/deep latch to increase milk, Transfer for baby and increase comfort for mom, Supply/demand nature of milk supply, Alternative feeding methods (SNS, cup, finger feeding, bottling) (paced bottle feeding), Pumping for milk management and Milk collection, storage Follow-Up Suggested follow up: Appointment as needed Time Spent Time spent with patient (min): 60 (reviewing EMR and face to face with patient and ) Meds Home Medications and Allergies Home Medications ?Medication ?Instructions ?Recorded ?Confirmed ?Type vitamin with calcium 1 tab PO DAILY 12/05/23 07/23/24 History no.72-iron 27 mg-folic acid 1 mg tablet ( Vitamins Plus Low Iron) Allergies Allergy/AdvReac Type Severity Reaction Status Date / Time No Known Drug Allergies Allergy Verified 07/23/24 12:03
== END 2024-07-30 15:32 | disposition home or self-care (01) ==
LOC: OB LAC 15:32
PROVIDERS: PCP Family Medicine; Visit Provider Family Medicine
DX: Z39.1 Encounter for care and examination of lactating mother (principal)
CPT/HCPCS: G0463